=== PATIENT | female | born 1955 | race Caucasian/White ===

== ENCOUNTER 2017-04-24 17:16 | Inpatient (IN) | payer MEDICARE, OTHER ==
[2017-04-24 17:51] LABS: ADD UMIC YES; UR ASCORBIC ACID NEGATIVE (NEGATIVE); UR BACTERIA FEW /HPF (NONE SEEN); UR BILIRUBIN (Dip) NEGATIVE (NEGATIVE); UR BLOOD (Dip) 2+ mg/dL (NEGATIVE); UR CLARITY TURBID (CLEAR); UR COLOR YELLOW (YELLOW); UR GLUCOSE (Dip) 2+ mg/dL (NEGATIVE); UR KETONES (Dip) TRACE mg/dL (NEGATIVE); UR LEUKOCYTE ESTERASE (Dip) 2+ Leu/ul (NEGATIVE); UR NITRITE (Dip) NEGATIVE (NEGATIVE); UR NONSQUAMOUS EPITHELIAL CELL 6 /HPF (NONE SEEN); UR RBC 161 /HPF (0-5); UR SQUAMOUS EPITHELIAL CELL FEW /HPF (FEW); UR TOTAL PROTEIN (Dip) 2+ mg/dl (NEGATIVE); UR UROBILINOGEN (Dip) NEGATIVE (NEGATIVE); UR WBC > 182 /HPF (0-5)
[2017-04-24] MEDS ORDERED: GLUCAGON 1 MG INJ IM (18:30)
[2017-04-24] MEDS ORDERED: LIDOCAINE 1% (MDV) 20 ML INJ INJ (18:30)
[2017-04-24] MEDS ORDERED: GLUCOSE GEL 15 GRAM TUBE BUCCAL (18:30)
[2017-04-24] MEDS ORDERED: DEXTROSE 50% 50 ML SYRINGE IV ×2 (18:30)
[2017-04-24] MEDS ORDERED: GLUCOSE GEL 15 GRAM TUBE PO ×2 (18:30)
[2017-04-24] MEDS ORDERED: DIPHENOXYLATE/ATROPINE TAB PO (19:00)
[2017-04-24] MEDS: NYSTATIN 30 GM POWDER BTL TOP (20:33)
[2017-04-24] MEDS: BALSAM PERU/CASTOR OIL 60 GM TUBE TOP (20:33)
[2017-04-24] MEDS: INSULIN DETEMIR SC (20:36)
[2017-04-24] MEDS: HYDROCODONE/APAP (5/325) TAB PO (21:00)
[2017-04-24] MEDS: ZOLPIDEM 5 MG TAB PO (21:00)
[2017-04-25] MEDS: ACCUCHECK AT 2AM (Patients on SS coverage) XX (02:00)
[2017-04-25] MEDS: ACCUCHECK 2 AM XX (02:00)
[2017-04-25] MEDS: HYDROCODONE/APAP (5/325) TAB PO ×4 (03:06→21:08)
[2017-04-25] MEDS ORDERED: LEVOTHYROXINE 100 MCG TAB PO (06:00)
[2017-04-25 06:30] LABS: ADD MAN DIFF? NO
[2017-04-25 06:34] LABS: EOSINOPHILS # 0.1 10^3/ul (0.0-0.5); EOSINOPHILS % 3.1 % (0.0-7.0); HEMOGLOBIN 11.5 g/dl (12.0-16.0); LYMPHOCYTES % 32.7 % (15.0-51.0); MEAN CORPUSCULAR HEMOGLOBIN 29.6 pg (29.0-33.0); MEAN CORPUSCULAR HGB CONC 33.8 g/dl (32.0-37.0); MEAN CORPUSCULAR VOLUME 87.6 fl (82.0-101.0); MEAN PLATELET VOLUME 10.1 fl (7.4-10.4); MONOCYTE # 0.3 10^3/ul (0.3-0.9); MONOCYTES % 10.9 % (0.0-11.0); NEUTROPHIL # 1.5 10^3/ul (1.6-7.5); PLATELET COUNT 121 10^3/UL (140-415); RED BLOOD COUNT 3.88 10^6/ul (4.20-5.40); RED CELL DISTRIBUTION WIDTH 15.4 % (11.5-14.5)
[2017-04-25 06:34] LABS: WHITE BLOOD COUNT 2.9 10^3/ul (4.8-10.8)
[2017-04-25] MEDS: PANTOPRAZOLE (EC) 40 MG TAB PO (06:47)
[2017-04-25] MEDS: LEVOTHYROXINE 100 MCG TAB PO (06:50)
[2017-04-25 07:19] LABS: ALANINE AMINOTRANSFERASE 35 IU/L (13-69); ALBUMIN 2.6 g/dl (3.3-4.9); ALBUMIN/GLOBULIN RATIO 0.96; ALKALINE PHOSPHATASE 106 IU/L (42-121); ANION GAP 18 (8-16); ASPARTATE AMINO TRANSFERASE 27 IU/L (15-46); BLOOD UREA NITROGEN 27 mg/dl (7-20); CALCIUM 8.7 mg/dl (8.4-10.2); CARBON DIOXIDE 26 mmol/L (21-31); CHLORIDE 89 mmol/L (97-110); CREATININE 6.57 mg/dl (0.44-1.00); GLUCOSE 321 mg/dl (70-220); POTASSIUM 4.6 mmol/L (3.5-5.1); SODIUM 128 mmol/L (135-144); TOTAL PROTEIN 5.3 g/dl (6.1-8.1)
[2017-04-25] MEDS: BALSAM PERU/CASTOR OIL 60 GM TUBE TOP ×2 (08:55→21:10)
[2017-04-25] MEDS: MULTIVIT/CA CARB/B CMPLX/FA TAB PO (08:56)
[2017-04-25] MEDS: CALCIUM ACETATE 667 MG CAP PO ×3 (08:56→18:07)
[2017-04-25] MEDS: FOLIC ACID 1 MG TAB PO (08:56)
[2017-04-25] MEDS: CREON (24K-76K-120K) 1 CAP PO ×3 (08:56→18:07)
[2017-04-25] MEDS: ISOSORBIDE MONONITRATE(SR)60 MG TAB PO (08:56)
[2017-04-25] MEDS: CLOPIDOGREL 75 MG TAB PO (08:56)
[2017-04-25] MEDS: CHOLECALCIFEROL 1,000 UNIT TAB PO (08:57)
[2017-04-25] MEDS: MULTIVITAMINS THERAPEUTIC TAB PO (09:00)
[2017-04-25] MEDS: Insulin NOVOLOG SS MODERATE Algorithm (SS with meals and bedtime) SC ×2 (09:04→12:50)
[2017-04-25] MEDS: DIPHENOXYLATE/ATROPINE TAB PO ×2 (11:53→20:32)
[2017-04-25] MEDS: NYSTATIN 30 GM POWDER BTL TOP ×2 (13:20→21:00)
[2017-04-25] MEDS: ALBUTEROL/IPRATROPIUM (NEB) 3 ML AMP HHN (17:54)
[2017-04-25] MEDS: INSULIN ASPART [NOVOLOG] 3 ML PEN SC ×5 (18:10→21:00)
[2017-04-25] MEDS: ACETAMINOPHEN 325 MG TAB PO (20:23)
[2017-04-25] MEDS: ROSUVASTATIN 10 MG TAB PO (20:23)
[2017-04-25] MEDS: ZOLPIDEM 5 MG TAB PO (20:29)
[2017-04-25] MEDS: INSULIN DETEMIR [LEVEMIR] 3ML CART SC (20:41)
[2017-04-26] MEDS: ACCU-CHEK XX (01:27)
[2017-04-26] MEDS: ACCUCHECK AT 2AM (Patients on SS coverage) XX (02:16)
[2017-04-26] MEDS: HYDROCODONE/APAP (5/325) TAB PO ×4 (03:20→21:54)
[2017-04-26] MEDS: ALBUTEROL/IPRATROPIUM (NEB) 3 ML AMP HHN ×2 (03:40→15:12)
[2017-04-26] MEDS: PANTOPRAZOLE (EC) 40 MG TAB PO (06:34)
[2017-04-26] MEDS: LEVOTHYROXINE 100 MCG TAB PO (06:37)
[2017-04-26] MEDS: BALSAM PERU/CASTOR OIL 60 GM TUBE TOP ×2 (07:49→20:15)
[2017-04-26] MEDS: ISOSORBIDE MONONITRATE(SR)60 MG TAB PO (07:49)
[2017-04-26] MEDS: MULTIVIT/CA CARB/B CMPLX/FA TAB PO (07:50)
[2017-04-26] MEDS: FOLIC ACID 1 MG TAB PO (07:50)
[2017-04-26] MEDS: MULTIVITAMINS THERAPEUTIC TAB PO (07:50)
[2017-04-26] MEDS: CLOPIDOGREL 75 MG TAB PO (07:50)
[2017-04-26] MEDS: CHOLECALCIFEROL 1,000 UNIT TAB PO (07:50)
[2017-04-26] MEDS: CALCIUM ACETATE 667 MG CAP PO ×3 (07:51→17:15)
[2017-04-26] MEDS: CREON (24K-76K-120K) 1 CAP PO ×3 (07:51→17:15)
[2017-04-26] MEDS: INSULIN ASPART [NOVOLOG] 3 ML PEN SC ×7 (08:00→20:21)
[2017-04-26] MEDS: NYSTATIN 30 GM POWDER BTL TOP ×2 (09:00→20:15)
[2017-04-26] MEDS: FLUCONAZOLE 150 MG TAB NGT (17:15)
[2017-04-26] MEDS: L ACIDOPHIL/B LACTIS/B LONGUM CAPSULE PO (20:09)
[2017-04-26] MEDS: INSULIN DETEMIR [LEVEMIR] 3ML CART SC (20:20)
[2017-04-26] MEDS: ROSUVASTATIN CALCIUM 40 MG TABLET PO (21:28)
[2017-04-26] MEDS: AMOXICILLIN 500 MG CAP PO (21:28)
[2017-04-26] MEDS: ZOLPIDEM 5 MG TAB PO (21:28)
[2017-04-27] MEDS: ACCU-CHEK XX (02:00)
[2017-04-27] MEDS: HYDROCODONE/APAP (5/325) TAB PO ×3 (03:53→20:28)
[2017-04-27] MEDS: LEVOTHYROXINE 100 MCG TAB PO (06:31)
[2017-04-27] MEDS: PANTOPRAZOLE (EC) 40 MG TAB PO (06:31)
[2017-04-27] MEDS: AMOXICILLIN 500 MG CAP PO ×3 (06:31→20:24)
[2017-04-27] MEDS: INSULIN ASPART [NOVOLOG] 3 ML PEN SC ×7 (07:35→20:26)
[2017-04-27] MEDS: FOLIC ACID 1 MG TAB PO (08:24)
[2017-04-27] MEDS: CREON (24K-76K-120K) 1 CAP PO ×3 (08:24→18:00)
[2017-04-27] MEDS: CALCIUM ACETATE 667 MG CAP PO ×3 (08:24→18:00)
[2017-04-27] MEDS: L ACIDOPHIL/B LACTIS/B LONGUM CAPSULE PO ×2 (08:24→20:30)
[2017-04-27] MEDS: CLOPIDOGREL 75 MG TAB PO (08:24)
[2017-04-27] MEDS: CHOLECALCIFEROL 1,000 UNIT TAB PO (08:25)
[2017-04-27] MEDS: MULTIVIT/CA CARB/B CMPLX/FA TAB PO (08:28)
[2017-04-27] MEDS: MULTIVITAMINS THERAPEUTIC TAB PO (08:28)
[2017-04-27] MEDS: ISOSORBIDE MONONITRATE(SR)60 MG TAB PO (08:54)
[2017-04-27] MEDS: NYSTATIN 30 GM POWDER BTL TOP ×2 (09:00→20:27)
[2017-04-27] MEDS: BALSAM PERU/CASTOR OIL 60 GM TUBE TOP ×2 (09:00→20:27)
[2017-04-27] MEDS: ALBUTEROL/IPRATROPIUM (NEB) 3 ML AMP HHN (16:21)
[2017-04-27] MEDS: ROSUVASTATIN CALCIUM 40 MG TABLET PO (20:25)
[2017-04-27] MEDS: ZOLPIDEM 5 MG TAB PO (20:28)
[2017-04-27] MEDS: INSULIN DETEMIR [LEVEMIR] 3ML CART SC (20:40)
[2017-04-28] MEDS: ACCU-CHEK XX (02:00)
[2017-04-28] MEDS: AMOXICILLIN 500 MG CAP PO ×3 (06:27→21:00)
[2017-04-28] MEDS: PANTOPRAZOLE (EC) 40 MG TAB PO (06:28)
[2017-04-28] MEDS: LEVOTHYROXINE 100 MCG TAB PO (06:28)
[2017-04-28] MEDS: INSULIN ASPART [NOVOLOG] 3 ML PEN SC ×7 (07:35→20:57)
[2017-04-28] MEDS: MULTIVITAMINS THERAPEUTIC TAB PO (08:31)
[2017-04-28] MEDS: CHOLECALCIFEROL 1,000 UNIT TAB PO (08:37)
[2017-04-28] MEDS: CALCIUM ACETATE 667 MG CAP PO ×3 (08:38→17:35)
[2017-04-28] MEDS: CREON (24K-76K-120K) 1 CAP PO ×3 (08:38→17:36)
[2017-04-28] MEDS: MULTIVIT/CA CARB/B CMPLX/FA TAB PO (08:38)
[2017-04-28] MEDS: ISOSORBIDE MONONITRATE(SR)60 MG TAB PO (08:38)
[2017-04-28] MEDS: CLOPIDOGREL 75 MG TAB PO (08:38)
[2017-04-28] MEDS: FOLIC ACID 1 MG TAB PO (08:38)
[2017-04-28] MEDS: L ACIDOPHIL/B LACTIS/B LONGUM CAPSULE PO ×2 (08:39→20:56)
[2017-04-28] MEDS: NYSTATIN 30 GM POWDER BTL TOP ×3 (08:40→21:00)
[2017-04-28] MEDS: BALSAM PERU/CASTOR OIL 60 GM TUBE TOP ×3 (08:40→21:00)
[2017-04-28] MEDS: ALBUTEROL/IPRATROPIUM (NEB) 3 ML AMP HHN (19:04)
[2017-04-28] MEDS: ZOLPIDEM 5 MG TAB PO (20:58)
[2017-04-28] MEDS: HYDROCODONE/APAP (5/325) TAB PO (20:58)
[2017-04-28] MEDS: INSULIN DETEMIR [LEVEMIR] 3ML CART SC (21:00)
[2017-04-28] MEDS: ROSUVASTATIN CALCIUM 40 MG TABLET PO (21:01)
[2017-04-29] MEDS: ACCU-CHEK XX (01:37)
[2017-04-29] MEDS: PANTOPRAZOLE (EC) 40 MG TAB PO (06:45)
[2017-04-29] MEDS: AMOXICILLIN 500 MG CAP PO (06:45)
[2017-04-29] MEDS: LEVOTHYROXINE 100 MCG TAB PO (06:45)
[2017-04-29] MEDS: INSULIN ASPART [NOVOLOG] 3 ML PEN SC ×7 (08:26→21:00)
[2017-04-29] MEDS: CALCIUM ACETATE 667 MG CAP PO ×3 (08:30→17:51)
[2017-04-29] MEDS: ISOSORBIDE MONONITRATE(SR)60 MG TAB PO (08:30)
[2017-04-29] MEDS: CREON (24K-76K-120K) 1 CAP PO ×3 (08:30→17:51)
[2017-04-29] MEDS: L ACIDOPHIL/B LACTIS/B LONGUM CAPSULE PO ×2 (08:30→21:15)
[2017-04-29] MEDS: FOLIC ACID 1 MG TAB PO (08:31)
[2017-04-29] MEDS: CLOPIDOGREL 75 MG TAB PO (08:31)
[2017-04-29] MEDS: MULTIVIT/CA CARB/B CMPLX/FA TAB PO (08:31)
[2017-04-29] MEDS: CHOLECALCIFEROL 1,000 UNIT TAB PO (08:31)
[2017-04-29] MEDS: BALSAM PERU/CASTOR OIL 60 GM TUBE TOP ×2 (08:32→21:00)
[2017-04-29] MEDS: NYSTATIN 30 GM POWDER BTL TOP ×2 (08:32→21:00)
[2017-04-29] MEDS: HYDROCODONE/APAP (5/325) TAB PO ×3 (08:40→21:17)
[2017-04-29] MEDS: MULTIVITAMINS THERAPEUTIC TAB PO (08:40)
[2017-04-29] MEDS: AMPICILLIN 500 MG CAP PO (09:00)
[2017-04-29] MEDS: FLUCONAZOLE 100 MG TAB PO ×2 (09:59→21:16)
[2017-04-29] MEDS ORDERED: FLUCONAZOLE 100 MG TAB (21:00)
[2017-04-29] MEDS: ROSUVASTATIN CALCIUM 40 MG TABLET PO ×2 (21:00→21:17)
[2017-04-29] MEDS: ZOLPIDEM 5 MG TAB PO (21:16)
[2017-04-29] MEDS: INSULIN DETEMIR [LEVEMIR] 3ML CART SC (21:36)
[2017-04-30] MEDS: ACCU-CHEK XX (02:00)
[2017-04-30] MEDS: HYDROCODONE/APAP (5/325) TAB PO ×3 (03:13→21:47)
[2017-04-30] MEDS: ACETAMINOPHEN 325 MG TAB PO (03:23)
[2017-04-30 06:29] LABS: ADD MAN DIFF? NO
[2017-04-30 06:33] LABS: WHITE BLOOD COUNT 3.7 10^3/ul (4.8-10.8)
[2017-04-30 06:33] LABS: BASOPHIL # 0.1 10^3/ul (0.0-0.1); BASOPHILS % 1.6 % (0.0-2.0); EOSINOPHILS # 0.1 10^3/ul (0.0-0.5); EOSINOPHILS % 3.8 % (0.0-7.0); HEMOGLOBIN 11.2 g/dl (12.0-16.0); LYMPHOCYTES % 26.8 % (15.0-51.0); MEAN CORPUSCULAR HEMOGLOBIN 29.9 pg (29.0-33.0); MEAN CORPUSCULAR HGB CONC 32.9 g/dl (32.0-37.0); MEAN CORPUSCULAR VOLUME 90.9 fl (82.0-101.0); MEAN PLATELET VOLUME 10.3 fl (7.4-10.4); MONOCYTE # 0.6 10^3/ul (0.3-0.9); MONOCYTES % 15.1 % (0.0-11.0); NEUTROPHIL # 1.9 10^3/ul (1.6-7.5); NEUTROPHILS % 52.4 % (39.0-77.0); PLATELET COUNT 116 10^3/UL (140-415); RED BLOOD COUNT 3.74 10^6/ul (4.20-5.40); RED CELL DISTRIBUTION WIDTH 16.1 % (11.5-14.5)
[2017-04-30 07:03] LABS: ANION GAP 13 (8-16); BLOOD UREA NITROGEN 23 mg/dl (7-20); CALCIUM 8.9 mg/dl (8.4-10.2); CARBON DIOXIDE 31 mmol/L (21-31); CHLORIDE 95 mmol/L (97-110); CREATININE 5.16 mg/dl (0.44-1.00); GLUCOSE 152 mg/dl (70-220); PHOSPHORUS 3.9 mg/dl (2.5-4.9); POTASSIUM 3.7 mmol/L (3.5-5.1); SODIUM 135 mmol/L (135-144)
[2017-04-30] MEDS: INSULIN ASPART [NOVOLOG] 3 ML PEN SC ×7 (07:35→21:00)
[2017-04-30] MEDS: MULTIVIT/CA CARB/B CMPLX/FA TAB PO (08:19)
[2017-04-30] MEDS: LEVOTHYROXINE 100 MCG TAB PO (08:19)
[2017-04-30] MEDS: PANTOPRAZOLE (EC) 40 MG TAB PO (08:19)
[2017-04-30] MEDS: MULTIVITAMINS THERAPEUTIC TAB PO (08:19)
[2017-04-30] MEDS: CREON (24K-76K-120K) 1 CAP PO ×3 (08:20→17:35)
[2017-04-30] MEDS: CALCIUM ACETATE 667 MG CAP PO ×3 (08:20→17:36)
[2017-04-30] MEDS: AMPICILLIN 500 MG CAP PO (08:21)
[2017-04-30] MEDS: L ACIDOPHIL/B LACTIS/B LONGUM CAPSULE PO ×2 (08:21→21:53)
[2017-04-30] MEDS: ISOSORBIDE MONONITRATE(SR)60 MG TAB PO (08:21)
[2017-04-30] MEDS: CLOPIDOGREL 75 MG TAB PO (08:21)
[2017-04-30] MEDS: CHOLECALCIFEROL 1,000 UNIT TAB PO (08:22)
[2017-04-30] MEDS: FOLIC ACID 1 MG TAB PO (08:22)
[2017-04-30] MEDS: BALSAM PERU/CASTOR OIL 60 GM TUBE TOP ×2 (08:22→21:59)
[2017-04-30] MEDS: NYSTATIN 30 GM POWDER BTL TOP ×2 (08:22→21:59)
[2017-04-30] MEDS: FLUCONAZOLE 100 MG TAB PO (09:50)
[2017-04-30] MEDS: ZOLPIDEM 5 MG TAB PO (21:46)
[2017-04-30] MEDS: ROSUVASTATIN CALCIUM 40 MG TABLET PO (21:46)
[2017-04-30] MEDS: INSULIN DETEMIR [LEVEMIR] 3ML CART SC (21:58)
[2017-05-01] MEDS: ACCU-CHEK XX (02:00)
[2017-05-01] MEDS: PANTOPRAZOLE (EC) 40 MG TAB PO (06:10)
[2017-05-01] MEDS: LEVOTHYROXINE 100 MCG TAB PO (06:10)
[2017-05-01] MEDS: INSULIN ASPART [NOVOLOG] 3 ML PEN SC ×2 (07:35)
[2017-05-01] MEDS: HYDROCODONE/APAP (5/325) TAB PO (08:18)
[2017-05-01] MEDS: CALCIUM ACETATE 667 MG CAP PO (08:18)
[2017-05-01] MEDS: AMPICILLIN 500 MG CAP PO (08:18)
[2017-05-01] MEDS: CREON (24K-76K-120K) 1 CAP PO (08:19)
[2017-05-01] MEDS: MULTIVIT/CA CARB/B CMPLX/FA TAB PO (08:19)
[2017-05-01] MEDS: FOLIC ACID 1 MG TAB PO (08:19)
[2017-05-01] MEDS: CHOLECALCIFEROL 1,000 UNIT TAB PO (08:19)
[2017-05-01] MEDS: CLOPIDOGREL 75 MG TAB PO (08:19)
[2017-05-01] MEDS: ISOSORBIDE MONONITRATE(SR)60 MG TAB PO (08:20)
[2017-05-01] MEDS: MULTIVITAMINS THERAPEUTIC TAB PO (08:45)
[2017-05-01] MEDS: L ACIDOPHIL/B LACTIS/B LONGUM CAPSULE PO (08:45)
[2017-05-01] MEDS: BALSAM PERU/CASTOR OIL 60 GM TUBE TOP (09:00)
[2017-05-01] MEDS: NYSTATIN 30 GM POWDER BTL TOP (09:00)
[2017-05-01] MEDS ORDERED: FLUCONAZOLE 100 MG TAB PO (10:00)
== END 2017-05-01 11:00 | disposition home health service (06) | DRG 945 ==
LOC: VRC 17:16
PROC: F07Z5ZZ Bed Mobility Treatment (ICD-10-PCS; principal; 2017-04-25)
PROC: F07Z8ZZ Transfer Training Treatment (ICD-10-PCS; 2017-04-25)
PROC: F07Z9YZ Gait Training/Functional Ambulation Treatment using Other Equipment (ICD-10-PCS; 2017-04-25)
PROC: F08Z2ZZ Grooming/Personal Hygiene Treatment (ICD-10-PCS; 2017-04-25)
PROC: F08Z1ZZ Dressing Techniques Treatment (ICD-10-PCS; 2017-04-25)
PROC: F08Z0ZZ Bathing/Showering Techniques Treatment (ICD-10-PCS; 2017-04-25)
PROC: 5A1D70Z Performance of Urinary Filtration, Intermittent, Less than 6 Hours Per Day (ICD-10-PCS; 2017-04-25)
PROC: 5A1D70Z Performance of Urinary Filtration, Intermittent, Less than 6 Hours Per Day (ICD-10-PCS; 2017-04-27)
PROC: 5A1D70Z Performance of Urinary Filtration, Intermittent, Less than 6 Hours Per Day (ICD-10-PCS; 2017-04-29)
PROC: 5A1D70Z Performance of Urinary Filtration, Intermittent, Less than 6 Hours Per Day (ICD-10-PCS; 2017-05-01)
DX: R53.1 Weakness (principal); N18.6 End stage renal disease; L89.150 Pressure ulcer of sacral region, unstageable; I12.0 Hypertensive chronic kidney disease with stage 5 chronic kidney disease or end stage renal disease; E10.22 Type 1 diabetes mellitus with diabetic chronic kidney disease; B37.41 Candidal cystitis and urethritis; D63.1 Anemia in chronic kidney disease; Z94.0 Kidney transplant status; J20.9 Acute bronchitis, unspecified; E10.65 Type 1 diabetes mellitus with hyperglycemia; E10.69 Type 1 diabetes mellitus with other specified complication; F06.31 Mood disorder due to known physiological condition with depressive features; H91.8X9 Other specified hearing loss, unspecified ear; I48.91 Unspecified atrial fibrillation; K52.9 Noninfective gastroenteritis and colitis, unspecified; B95.2 Enterococcus as the cause of diseases classified elsewhere; Z16.21 Resistance to vancomycin; I25.10 Atherosclerotic heart disease of native coronary artery without angina pectoris; Z74.09 Other reduced mobility; Z99.2 Dependence on renal dialysis; Z79.4 Long term (current) use of insulin
CPT/HCPCS: 80048; 80053; 81001; 82962; 84100; 85025; 87081; 87086; 90935; 94640; 94664; 97110; 97112; 97116; 97163; 97167; 97530; 97535

== ENCOUNTER 2017-09-21 10:00 | Inpatient (IN) | payer MEDICARE, OTHER ==
[2017-09-21 12:05] LABS: ADD MAN DIFF? NO
[2017-09-21 12:19] LABS: BASOPHIL # 0.1 10^3/ul (0.0-0.1); EOSINOPHILS # 0.1 10^3/ul (0.0-0.5); EOSINOPHILS % 0.9 % (0.0-7.0); HEMATOCRIT 35.8 % (37.0-47.0); HEMOGLOBIN 11.4 g/dl (12.0-16.0); LYMPHOCYTES # 0.6 10^3/ul (0.8-2.9); LYMPHOCYTES % 11.2 % (15.0-51.0); MEAN CORPUSCULAR HEMOGLOBIN 28.9 pg (29.0-33.0); MEAN CORPUSCULAR HGB CONC 31.8 g/dl (32.0-37.0); MEAN CORPUSCULAR VOLUME 90.9 fl (82.0-101.0); MONOCYTE # 0.3 10^3/ul (0.3-0.9); MONOCYTES % 5.9 % (0.0-11.0); NEUTROPHIL # 4.6 10^3/ul (1.6-7.5); NEUTROPHILS % 80.7 % (39.0-77.0); PLATELET COUNT 185 10^3/UL (140-415); RED BLOOD COUNT 3.94 10^6/ul (4.20-5.40); RED CELL DISTRIBUTION WIDTH 15.7 % (11.5-14.5)
[2017-09-21 12:19] LABS: WHITE BLOOD COUNT 5.7 10^3/ul (4.8-10.8)
[2017-09-21 12:33] LABS: ALANINE AMINOTRANSFERASE 24 IU/L (13-69); ALBUMIN 3.8 g/dl (3.3-4.9); ALBUMIN/GLOBULIN RATIO 1.22; ALKALINE PHOSPHATASE 162 IU/L (42-121); ANION GAP 28 (8-16); ASPARTATE AMINO TRANSFERASE 31 IU/L (15-46); BILIRUBIN,INDIRECT 0.1 mg/dl (0-1.1); BILIRUBIN,TOTAL 0.1 mg/dl (0.2-1.3); BLOOD UREA NITROGEN 45 mg/dl (7-20); CALCIUM 9.4 mg/dl (8.4-10.2); CARBON DIOXIDE 21 mmol/L (21-31); CHLORIDE 82 mmol/L (97-110); CREATININE 7.06 mg/dl (0.44-1.00); LIPASE 26 U/L (23-300); POTASSIUM 4.6 mmol/L (3.5-5.1); SODIUM 126 mmol/L (135-144); TOTAL PROTEIN 6.9 g/dl (6.1-8.1)
[2017-09-21 12:36] LABS: GLUCOSE 537 mg/dl (70-220)
[2017-09-21] MEDS: INSULIN REGULAR, HUMAN 100 UNIT/1 ML 3ML VIAL SC (13:05)
[2017-09-21] MEDS: SOD CHLORIDE 0.9% 250 ML IV (13:11)
[2017-09-21] MEDS ORDERED: ONDANSETRON 4 MG INJ IV ×2 (13:30→14:00)
[2017-09-21] MEDS ORDERED: ACETAMINOPHEN 325 MG TAB PO ×2 (13:30→14:00)
[2017-09-21] MEDS ORDERED: BISACODYL 10 MG SUPP PR (14:00)
[2017-09-21] MEDS ORDERED: DIPHENOXYLATE/ATROPINE TAB PO (14:00)
[2017-09-21] MEDS ORDERED: NACL 0.9% 3 ML SYG IV (14:00)
[2017-09-21] MEDS ORDERED: DOCUSATE SODIUM 100 MG CAP PO (14:00)
[2017-09-21] MEDS ORDERED: GLUCOSE GEL 15 GRAM TUBE BUCCAL (14:30)
[2017-09-21] MEDS ORDERED: DEXTROSE 50% 50 ML SYRINGE IV ×2 (14:30)
[2017-09-21] MEDS ORDERED: GLUCAGON 1 MG INJ IM (14:30)
[2017-09-21] MEDS ORDERED: GLUCOSE GEL 15 GRAM TUBE PO ×2 (14:30)
[2017-09-21 15:32] LABS: OSMOLALITY 302 mOsm/kg (280-295)
[2017-09-21 16:32] LABS: ANION GAP 23 (8-16); BLOOD UREA NITROGEN 49 mg/dl (7-20); CALCIUM 9.1 mg/dl (8.4-10.2); CARBON DIOXIDE 22 mmol/L (21-31); CHLORIDE 84 mmol/L (97-110); CREATININE 7.34 mg/dl (0.44-1.00); POTASSIUM 3.9 mmol/L (3.5-5.1); SODIUM 125 mmol/L (135-144)
[2017-09-21 16:49] LABS: GLUCOSE 445 mg/dl (70-220)
[2017-09-21] MEDS: CALCIUM ACETATE 667 MG CAP PO (17:29)
[2017-09-21] MEDS: SEVELAMER 800 MG TAB PO (17:29)
[2017-09-21] MEDS: INSULIN ASPART [NOVOLOG] 3 ML PEN SC ×3 (17:32→21:40)
[2017-09-21] MEDS ORDERED: INSULIN GLARGINE [LANtus] 3 ML PEN SC (21:00)
[2017-09-21] MEDS ORDERED: NON-FORMULARY/PATIENT OWN MED (Simvastatin* (Zocor*) 20 MG) PO (21:00)
[2017-09-21] MEDS: FISH OIL 1,000 MG CAP PO (21:23)
[2017-09-21] MEDS: INSULIN GLARGINE [LANtus] 3 ML PEN SC (21:42)
[2017-09-21] MEDS: HEPARIN 5,000 UNIT/0.5 ML VIAL SC (21:43)
[2017-09-21] MEDS: ZOLPIDEM 5 MG TAB PO (21:45)
[2017-09-21] MEDS: HYDROCODONE/APAP (5/325) TAB PO (21:59)
[2017-09-22] MEDS: INSULIN ASPART [NOVOLOG] 3 ML PEN SC ×6 (01:00→22:18)
[2017-09-22] MEDS: LEVOTHYROXINE 100 MCG TAB PO (06:47)
[2017-09-22] MEDS: CALCIUM ACETATE 667 MG CAP PO ×3 (08:12→17:04)
[2017-09-22] MEDS: FISH OIL 1,000 MG CAP PO ×2 (08:12→22:12)
[2017-09-22] MEDS: MULTIVIT/CA CARB/B CMPLX/FA TAB PO (08:12)
[2017-09-22] MEDS: PANTOPRAZOLE (EC) 40 MG TAB PO (08:12)
[2017-09-22] MEDS: SEVELAMER 800 MG TAB PO ×3 (08:12→17:04)
[2017-09-22] MEDS: FERROUS SULFATE (EC) 325 MG TAB PO (08:12)
[2017-09-22] MEDS: ISOSORBIDE MONONITRATE(SR)60 MG TAB PO (08:18)
[2017-09-22] MEDS: HEPARIN 5,000 UNIT/0.5 ML VIAL SC ×2 (08:42→22:18)
[2017-09-22 09:07] LABS: ADD MAN DIFF? NO
[2017-09-22 09:17] LABS: BASOPHIL # 0.1 10^3/ul (0.0-0.1); BASOPHILS % 1.5 % (0.0-2.0); EOSINOPHILS # 0.3 10^3/ul (0.0-0.5); EOSINOPHILS % 5.7 % (0.0-7.0); HEMATOCRIT 35.7 % (37.0-47.0); HEMOGLOBIN 11.5 g/dl (12.0-16.0); LYMPHOCYTES # 0.9 10^3/ul (0.8-2.9); LYMPHOCYTES % 19.8 % (15.0-51.0); MEAN CORPUSCULAR HEMOGLOBIN 28.4 pg (29.0-33.0); MEAN CORPUSCULAR HGB CONC 32.2 g/dl (32.0-37.0); MEAN CORPUSCULAR VOLUME 88.1 fl (82.0-101.0); MONOCYTE # 0.4 10^3/ul (0.3-0.9); MONOCYTES % 9.7 % (0.0-11.0); NEUTROPHIL # 2.9 10^3/ul (1.6-7.5); NEUTROPHILS % 62.9 % (39.0-77.0); PLATELET COUNT 210 10^3/UL (140-415); RED BLOOD COUNT 4.05 10^6/ul (4.20-5.40); RED CELL DISTRIBUTION WIDTH 15.2 % (11.5-14.5)
[2017-09-22 09:17] LABS: WHITE BLOOD COUNT 4.5 10^3/ul (4.8-10.8)
[2017-09-22 09:42] LABS: ANION GAP 15 (8-16); BLOOD UREA NITROGEN 52 mg/dl (7-20); CALCIUM 9.7 mg/dl (8.4-10.2); CARBON DIOXIDE 31 mmol/L (21-31); CHLORIDE 83 mmol/L (97-110); CREATININE 8.16 mg/dl (0.44-1.00); GLUCOSE 215 mg/dl (70-220); PHOSPHORUS 3.9 mg/dl (2.5-4.9); SODIUM 125 mmol/L (135-144)
[2017-09-22 09:44] LABS: IRON 121 ug/dl (35-150)
[2017-09-22 09:57] LABS: % IRON SATURATION 57 % SAT (22-52); TOTAL IRON BINDING CAPACITY 212 ug/dl (241-421)
[2017-09-22] MEDS: HYDROCODONE/APAP (5/325) TAB PO ×2 (10:04→22:32)
[2017-09-22] MEDS: LIDOCAINE 1% (MDV) 10 ML INJ INJ (14:15)
[2017-09-22 16:47] LABS: HEPATITIS B SURFACE ANTIGEN NEGATIVE (NEGATIVE)
[2017-09-22] MEDS ORDERED: EPOETIN 10000 UNITS/1 ML INJ (ESRD) SC (17:00)
[2017-09-22 17:23] LABS: HEPATITIS B SURFACE ANTIBODY NEGATIVE (NEGATIVE)
[2017-09-22] MEDS: INSULIN GLARGINE [LANtus] 3 ML PEN SC (22:18)
[2017-09-22] MEDS: ZOLPIDEM 5 MG TAB PO (22:33)
[2017-09-23] MEDS: INSULIN ASPART [NOVOLOG] 3 ML PEN SC ×5 (01:00→17:18)
[2017-09-23] MEDS: LEVOTHYROXINE 100 MCG TAB PO (06:11)
[2017-09-23] MEDS: LIDOCAINE 1% (MDV) 10 ML INJ INJ (08:00)
[2017-09-23] MEDS: FISH OIL 1,000 MG CAP PO (08:10)
[2017-09-23] MEDS: SEVELAMER 800 MG TAB PO ×3 (08:10→17:14)
[2017-09-23] MEDS: MULTIVIT/CA CARB/B CMPLX/FA TAB PO (08:10)
[2017-09-23] MEDS: PANTOPRAZOLE (EC) 40 MG TAB PO (08:11)
[2017-09-23] MEDS: FERROUS SULFATE (EC) 325 MG TAB PO (08:11)
[2017-09-23] MEDS: CALCIUM ACETATE 667 MG CAP PO ×3 (08:56→17:14)
[2017-09-23] MEDS: ISOSORBIDE MONONITRATE(SR)60 MG TAB PO (08:56)
[2017-09-23] MEDS: HEPARIN 5,000 UNIT/0.5 ML VIAL SC (08:57)
[2017-09-23] MEDS: HYDROCODONE/APAP (5/325) TAB PO (10:00)
== END 2017-09-23 19:15 | disposition home or self-care (01) | DRG 682 ==
LOC: E/R 10:00 → MS4 13:14
PROC: 5A1D70Z Performance of Urinary Filtration, Intermittent, Less than 6 Hours Per Day (ICD-10-PCS; principal; 2017-09-22)
DX: I12.0 Hypertensive chronic kidney disease with stage 5 chronic kidney disease or end stage renal disease (principal); N18.6 End stage renal disease; Z94.83 Pancreas transplant status; E87.1 Hypo-osmolality and hyponatremia; T86.10 Unspecified complication of kidney transplant; E10.65 Type 1 diabetes mellitus with hyperglycemia; G25.3 Myoclonus; R53.1 Weakness; E10.22 Type 1 diabetes mellitus with diabetic chronic kidney disease; Z87.11 Personal history of peptic ulcer disease; E78.5 Hyperlipidemia, unspecified; E03.9 Hypothyroidism, unspecified; I25.10 Atherosclerotic heart disease of native coronary artery without angina pectoris; K21.9 Gastro-esophageal reflux disease without esophagitis; R26.89 Other abnormalities of gait and mobility; E10.42 Type 1 diabetes mellitus with diabetic polyneuropathy; D63.1 Anemia in chronic kidney disease; I48.91 Unspecified atrial fibrillation; H91.90 Unspecified hearing loss, unspecified ear; Z83.3 Family history of diabetes mellitus; Z99.2 Dependence on renal dialysis; Z91.15 Patient's noncompliance with renal dialysis; Z87.891 Personal history of nicotine dependence; Z91.81 History of falling; Z90.49 Acquired absence of other specified parts of digestive tract; Z96.642 Presence of left artificial hip joint; Z96.89 Presence of other specified functional implants; Z86.73 Personal history of transient ischemic attack (TIA), and cerebral infarction without residual deficits; Z85.828 Personal history of other malignant neoplasm of skin; Y83.0 Surgical operation with transplant of whole organ as the cause of abnormal reaction of the patient, or of later complication, without mention of misadventure at the time of the procedure
CPT/HCPCS: 36415; 70450; 71045; 80048; 80053; 82607; 82728; 82962; 83540; 83690; 83930; 84100; 84443; 85025; 86706; 87340; 90935; 93005; 96372; 97164; 99285-25

== ENCOUNTER 2018-03-01 18:14 | Emergency (ER) | payer MEDICARE, OTHER ==
[2018-03-01] MEDS: SOD CHLORIDE 0.9% 600 ML IV (19:42)
[2018-03-01 19:44] LABS: ADD MAN DIFF? NO; BASOPHIL # 0.1 10^3/ul (0.0-0.1); BASOPHILS % 1.5 % (0.0-2.0); EOSINOPHILS # 0.2 10^3/ul (0.0-0.5); EOSINOPHILS % 3.4 % (0.0-7.0); HEMATOCRIT 39.1 % (37.0-47.0); HEMOGLOBIN 12.3 g/dl (12.0-16.0); LYMPHOCYTES % 22.4 % (15.0-51.0); MEAN CORPUSCULAR HEMOGLOBIN 28.4 pg (29.0-33.0); MEAN CORPUSCULAR HGB CONC 31.5 g/dl (32.0-37.0); MEAN CORPUSCULAR VOLUME 90.3 fl (82.0-101.0); MONOCYTE # 0.4 10^3/ul (0.3-0.9); MONOCYTES % 8.6 % (0.0-11.0); NEUTROPHILS % 63.9 % (39.0-77.0); PLATELET COUNT 143 10^3/UL (140-415); RED BLOOD COUNT 4.33 10^6/ul (4.20-5.40); RED CELL DISTRIBUTION WIDTH 14.8 % (11.5-14.5)
[2018-03-01 19:44] LABS: WHITE BLOOD COUNT 4.6 10^3/ul (4.8-10.8)
[2018-03-01 20:04] LABS: ANION GAP 18 (5-13); BLOOD UREA NITROGEN 28 mg/dl (7-20); CALCIUM 10.6 mg/dl (8.4-10.2); CARBON DIOXIDE 29 mmol/L (21-31); CHLORIDE 82 mmol/L (97-110); CREATININE 4.98 mg/dl (0.44-1.00); Estimated GFR 9 mL/min (>60); MAGNESIUM 2.1 mg/dl (1.7-2.5); PHOSPHORUS 3.5 mg/dl (2.5-4.9); POTASSIUM 4.9 mmol/L (3.5-5.1); SODIUM 129 mmol/L (135-144)
[2018-03-01 20:06] LABS: GLUCOSE 508 mg/dl (70-220)
[2018-03-01] MEDS ORDERED: INSULIN LISPRO 100 UNIT/ML VIAL SC (20:30)
[2018-03-01] MEDS: INSULIN LISPRO 100 UNIT/ML VIAL SC (20:57)
== END 2018-03-01 22:16 | disposition home or self-care (01) ==
LOC: E/R 18:14
DX: E87.5 Hyperkalemia (principal); I12.0 Hypertensive chronic kidney disease with stage 5 chronic kidney disease or end stage renal disease; N18.6 End stage renal disease; I25.10 Atherosclerotic heart disease of native coronary artery without angina pectoris; E11.22 Type 2 diabetes mellitus with diabetic chronic kidney disease; Z79.4 Long term (current) use of insulin; Z86.73 Personal history of transient ischemic attack (TIA), and cerebral infarction without residual deficits; Z98.61 Coronary angioplasty status; Z99.2 Dependence on renal dialysis
CPT/HCPCS: 36415; 80048; 82962; 83735; 84100; 85025; 96372; 99284-25

== ENCOUNTER 2018-03-03 16:30 | Inpatient (IN) | payer MEDICARE, OTHER ==
[2018-03-03 18:16] LABS: ADD MAN DIFF? NO
[2018-03-03 18:18] LABS: WHITE BLOOD COUNT 4.3 10^3/ul (4.8-10.8)
[2018-03-03 18:18] LABS: BASOPHIL # 0.1 10^3/ul (0.0-0.1); BASOPHILS % 1.4 % (0.0-2.0); EOSINOPHILS # 0.1 10^3/ul (0.0-0.5); EOSINOPHILS % 2.3 % (0.0-7.0); HEMATOCRIT 38.1 % (37.0-47.0); HEMOGLOBIN 12.2 g/dl (12.0-16.0); LYMPHOCYTES # 1.1 10^3/ul (0.8-2.9); LYMPHOCYTES % 25.6 % (15.0-51.0); MEAN CORPUSCULAR HEMOGLOBIN 28.4 pg (29.0-33.0); MEAN CORPUSCULAR VOLUME 88.6 fl (82.0-101.0); MONOCYTE # 0.5 10^3/ul (0.3-0.9); MONOCYTES % 11.1 % (0.0-11.0); NEUTROPHIL # 2.6 10^3/ul (1.6-7.5); NEUTROPHILS % 59.4 % (39.0-77.0); PLATELET COUNT 135 10^3/UL (140-415)
[2018-03-03 18:36] LABS: ANION GAP 14 (5-13); BLOOD UREA NITROGEN 42 mg/dl (7-20); CALCIUM 10.1 mg/dl (8.4-10.2); CARBON DIOXIDE 28 mmol/L (21-31); CHLORIDE 83 mmol/L (97-110); CREATININE 7.38 mg/dl (0.44-1.00); Estimated GFR 6 mL/min (>60); GLUCOSE 301 mg/dl (70-220); MAGNESIUM 2.2 mg/dl (1.7-2.5); PHOSPHORUS 4.1 mg/dl (2.5-4.9); POTASSIUM 4.6 mmol/L (3.5-5.1); SODIUM 125 mmol/L (135-144)
[2018-03-03 18:45] LABS: INR 1.09; PROTIME 14.3 Sec (11.9-14.9); PT RATIO 1.1
[2018-03-03 18:46] LABS: PARTIAL THROMBOPLASTIN TIME 31.2 Sec (23.0-35.0)
[2018-03-03 18:47] LABS: TROPONIN-I 0.111 ng/ml (0.000-0.120)
[2018-03-03] MEDS ORDERED: NACL 0.9% 3 ML SYG IV (20:30)
[2018-03-03] MEDS ORDERED: ZOLPIDEM 5 MG TAB PO (20:30)
[2018-03-03] MEDS ORDERED: NON-FORMULARY/PATIENT OWN MED (Simvastatin* (Zocor*) 20 MG) XX (21:00)
[2018-03-04] MEDS: INSULIN ASPART [NOVOLOG] 3 ML PEN SC ×5 (00:26→21:21)
[2018-03-04] MEDS: INSULIN GLARGINE [LANTus] (100 UNITS/ML) SYG SC ×2 (00:38→21:20)
[2018-03-04] MEDS: DIPHENOXYLATE/ATROPINE TAB PO (06:16)
[2018-03-04] MEDS: PANTOPRAZOLE (EC) 40 MG TAB PO (06:16)
[2018-03-04] MEDS: LEVOTHYROXINE 100 MCG TAB PO (06:16)
[2018-03-04] MEDS: LOPERAMIDE 2 MG CAP PO (06:17)
[2018-03-04] MEDS: CALCIUM ACETATE 667 MG CAP PO ×3 (08:18→17:24)
[2018-03-04] MEDS: MULTIVIT/CA CARB/B CMPLX/FA TAB PO (08:19)
[2018-03-04] MEDS: ISOSORBIDE MONONITRATE(SR)30 MG TAB PO (08:20)
[2018-03-04] MEDS ORDERED: LIDOCAINE 1% (MDV) 10 ML INJ INFIL (08:30)
[2018-03-04] MEDS: [UNRECOGNIZED DRUG - REMARK] XX ×2 (09:00→17:32)
[2018-03-04] MEDS ORDERED: LIDOCAINE 1% (MPF) 5 ML VIAL INJ (10:00)
[2018-03-04] MEDS ORDERED: LIDOCAINE 1% (MPF) 10 ML INJ INJ (10:00)
[2018-03-04 10:33] LABS: HEPATITIS B SURFACE ANTIGEN NEGATIVE (NEGATIVE)
[2018-03-04 10:49] LABS: HEPATITIS B SURFACE ANTIBODY NEGATIVE (NEGATIVE)
[2018-03-04] MEDS: HYDROCODONE/APAP (5/325) TAB PO (10:58)
[2018-03-04] MEDS ORDERED: INSULIN GLARGINE [LANTus] (100 UNITS/ML) SYG SC (20:00)
[2018-03-04] MEDS: ZOLPIDEM 5 MG TAB PO (22:25)
[2018-03-04] MEDS: ACETAMINOPHEN 325 MG TAB PO (22:25)
[2018-03-05] MEDS: [UNRECOGNIZED DRUG - REMARK] XX (01:00)
[2018-03-05] MEDS: LEVOTHYROXINE 100 MCG TAB PO ×4 (06:41→08:20)
[2018-03-05] MEDS: PANTOPRAZOLE (EC) 40 MG TAB PO ×2 (06:41→08:22)
[2018-03-05] MEDS: CALCIUM ACETATE 667 MG CAP PO ×2 (08:18→17:02)
[2018-03-05] MEDS: MULTIVIT/CA CARB/B CMPLX/FA TAB PO (08:21)
[2018-03-05] MEDS: INSULIN ASPART [NOVOLOG] 3 ML PEN SC ×3 (08:40→17:02)
[2018-03-05] MEDS ORDERED: LIDOCAINE 1% (MPF) 5 ML VIAL INFIL (09:00)
[2018-03-05] MEDS: INSULIN GLARGINE [LANTus] (100 UNITS/ML) SYG SC (09:25)
[2018-03-05 10:34] LABS: ALANINE AMINOTRANSFERASE 52 IU/L (13-69); ALBUMIN 3.4 g/dl (3.3-4.9); ALBUMIN/GLOBULIN RATIO 1.36; ALKALINE PHOSPHATASE 155 IU/L (42-121); ANION GAP 10 (5-13); ASPARTATE AMINO TRANSFERASE 143 IU/L (15-46); BILIRUBIN,INDIRECT 0.2 mg/dl (0-1.1); BILIRUBIN,TOTAL 0.2 mg/dl (0.2-1.3); BLOOD UREA NITROGEN 23 mg/dl (7-20); CALCIUM 9.4 mg/dl (8.4-10.2); CARBON DIOXIDE 28 mmol/L (21-31); CHLORIDE 96 mmol/L (97-110); CREATININE 5.11 mg/dl (0.44-1.00); Estimated GFR 8 mL/min (>60); GLUCOSE 234 mg/dl (70-220); POTASSIUM 3.9 mmol/L (3.5-5.1); SODIUM 134 mmol/L (135-144); TOTAL PROTEIN 5.9 g/dl (6.1-8.1)
[2018-03-05] MEDS: ISOSORBIDE MONONITRATE(SR)30 MG TAB PO (17:01)
== END 2018-03-05 19:01 | disposition home or self-care (01) | DRG 91 ==
LOC: E/R 16:30 → 6WM 19:21
DX: G25.3 Myoclonus (principal); N18.6 End stage renal disease; I12.0 Hypertensive chronic kidney disease with stage 5 chronic kidney disease or end stage renal disease; E87.1 Hypo-osmolality and hyponatremia; E10.22 Type 1 diabetes mellitus with diabetic chronic kidney disease; D63.1 Anemia in chronic kidney disease; R00.1 Bradycardia, unspecified; R27.0 Ataxia, unspecified; I25.10 Atherosclerotic heart disease of native coronary artery without angina pectoris; Z99.2 Dependence on renal dialysis; Z95.5 Presence of coronary angioplasty implant and graft; Z96.21 Cochlear implant status
CPT/HCPCS: 36415; 71045; 80048; 80053; 82962; 83735; 84100; 84484; 85025; 85610; 85730; 86706; 87340; 90935; 93005; 99285-25

== ENCOUNTER 2018-08-06 16:41 | Emergency (ER) | payer MEDICARE, OTHER ==
[2018-08-06 18:01] LABS: ADD MAN DIFF? NO
[2018-08-06 18:02] LABS: BASOPHIL # 0.1 10^3/ul (0.0-0.1); BASOPHILS % 1.5 % (0.0-2.0); EOSINOPHILS # 0.1 10^3/ul (0.0-0.5); EOSINOPHILS % 2.4 % (0.0-7.0); HEMATOCRIT 30.3 % (37.0-47.0); HEMOGLOBIN 9.5 g/dl (12.0-16.0); LYMPHOCYTES # 0.7 10^3/ul (0.8-2.9); LYMPHOCYTES % 20.8 % (15.0-51.0); MEAN CORPUSCULAR HEMOGLOBIN 29.1 pg (29.0-33.0); MEAN CORPUSCULAR HGB CONC 31.4 g/dl (32.0-37.0); MEAN CORPUSCULAR VOLUME 92.9 fl (82.0-101.0); MONOCYTE # 0.3 10^3/ul (0.3-0.9); MONOCYTES % 9.8 % (0.0-11.0); NEUTROPHIL # 2.2 10^3/ul (1.6-7.5); NEUTROPHILS % 65.2 % (39.0-77.0); PLATELET COUNT 165 10^3/UL (140-415); RED BLOOD COUNT 3.26 10^6/ul (4.20-5.40); RED CELL DISTRIBUTION WIDTH 17.7 % (11.5-14.5)
[2018-08-06 18:02] LABS: WHITE BLOOD COUNT 3.4 10^3/ul (4.8-10.8)
[2018-08-06 18:21] LABS: INR 1.14; PARTIAL THROMBOPLASTIN TIME 30.3 Sec (23.0-35.0); PROTIME 14.7 Sec (11.9-14.9); PT RATIO 1.1
== END 2018-08-06 19:15 | disposition home or self-care (01) ==
LOC: E/R 16:41
DX: T82.898A Other specified complication of vascular prosthetic devices, implants and grafts, initial encounter (principal); N18.6 End stage renal disease; I12.0 Hypertensive chronic kidney disease with stage 5 chronic kidney disease or end stage renal disease; I25.10 Atherosclerotic heart disease of native coronary artery without angina pectoris; E11.22 Type 2 diabetes mellitus with diabetic chronic kidney disease; Y82.9 Unspecified medical devices associated with adverse incidents; Z87.891 Personal history of nicotine dependence; Z99.2 Dependence on renal dialysis; Z86.73 Personal history of transient ischemic attack (TIA), and cerebral infarction without residual deficits; Z98.61 Coronary angioplasty status; Z79.4 Long term (current) use of insulin
CPT/HCPCS: 85025; 85610; 85730; 86850; 86900; 86901; 99291-25

== ENCOUNTER 2018-10-04 15:07 | Inpatient (IN) | payer MEDICARE, OTHER ==
[2018-10-04] MEDS: PIPER-TAZO 3.375 GM IV (PMX) 100 ML IVPB (16:31)
[2018-10-04] MEDS: ONDANSETRON 4 MG INJ IV (16:31)
[2018-10-04] MEDS: morphine 4 MG/ML VIAL IV (16:31)
[2018-10-04 16:43] LABS: ADD MAN DIFF? NO
[2018-10-04 16:45] LABS: WHITE BLOOD COUNT 5.8 10^3/ul (4.8-10.8)
[2018-10-04 16:45] LABS: BASOPHIL # 0.1 10^3/ul (0.0-0.1); BASOPHILS % 1.2 % (0.0-2.0); EOSINOPHILS # 0.1 10^3/ul (0.0-0.5); EOSINOPHILS % 1.9 % (0.0-7.0); HEMATOCRIT 36.5 % (37.0-47.0); HEMOGLOBIN 11.6 g/dl (12.0-16.0); LYMPHOCYTES # 0.9 10^3/ul (0.8-2.9); LYMPHOCYTES % 14.6 % (15.0-51.0); MEAN CORPUSCULAR HEMOGLOBIN 27.1 pg (29.0-33.0); MEAN CORPUSCULAR HGB CONC 31.8 g/dl (32.0-37.0); MEAN CORPUSCULAR VOLUME 85.3 fl (82.0-101.0); MEAN PLATELET VOLUME 10.8 fl (7.4-10.4); MONOCYTE # 0.5 10^3/ul (0.3-0.9); MONOCYTES % 8.9 % (0.0-11.0); NEUTROPHIL # 4.3 10^3/ul (1.6-7.5); NEUTROPHILS % 73.2 % (39.0-77.0); PLATELET COUNT 137 10^3/UL (140-415); RED BLOOD COUNT 4.28 10^6/ul (4.20-5.40); RED CELL DISTRIBUTION WIDTH 15.3 % (11.5-14.5)
[2018-10-04 17:03] LABS: ALANINE AMINOTRANSFERASE 16 IU/L (13-69); ALBUMIN 4.1 g/dl (3.3-4.9); ALBUMIN/GLOBULIN RATIO 1.57; ALKALINE PHOSPHATASE 134 IU/L (42-121); ANION GAP 15 (5-13); ASPARTATE AMINO TRANSFERASE 29 IU/L (15-46); BILIRUBIN,INDIRECT 0.2 mg/dl (0-1.1); BILIRUBIN,TOTAL 0.2 mg/dl (0.2-1.3); BLOOD UREA NITROGEN 39 mg/dl (7-20); CALCIUM 9.7 mg/dl (8.4-10.2); CARBON DIOXIDE 27 mmol/L (21-31); CHLORIDE 87 mmol/L (97-110); CREATININE 5.29 mg/dl (0.44-1.00); Estimated GFR 8 mL/min (>60); POTASSIUM 4.6 mmol/L (3.5-5.1); SODIUM 129 mmol/L (135-144); TOTAL PROTEIN 6.7 g/dl (6.1-8.1)
[2018-10-04 17:06] LABS: INR 1.07; PT RATIO 1.1
[2018-10-04 17:07] LABS: PARTIAL THROMBOPLASTIN TIME 31.8 Sec (23.0-35.0)
[2018-10-04 17:14] LABS: TROPONIN-I 0.051 ng/ml (0.000-0.120)
[2018-10-04 17:17] LABS: GLUCOSE 586 mg/dl (70-220)
[2018-10-04] MEDS ORDERED: INSULIN REGULAR 10 ML INJ IV (17:26)
[2018-10-04] MEDS: CLINDAMYCIN 900 MG/D5W (PMX) 50 ML IVPB (17:30)
[2018-10-04 17:32] LABS: MODE ROOM AIR; MetHgb Venous 0.4 %; Sample Type Blood venous; Site VENOUS LINE; Venous COHb 0.5 %; Venous Fraction OxyHgb 49.6 %; Venous Oxygen Sat 50.1 mmHG (55.0-75.0); Venous Total Hemglobin 12.6 g/dl
[2018-10-04 17:45] LABS: PHOSPHORUS 5.4 mg/dl (2.5-4.9)
[2018-10-04 17:45] LABS: MAGNESIUM 2.1 mg/dl (1.7-2.5)
[2018-10-04 17:53] LABS: HEMOGLOBIN A1C 9.8 % (0-5.9)
[2018-10-04] MEDS ORDERED: INSULIN LISPRO 100 UNIT/ML VIAL SC (18:01)
[2018-10-04] MEDS: INSULIN HUMAN REGULAR 100 UNIT in SOD CHLORIDE 0.9% 99 ML IV (18:07)
[2018-10-04] MEDS: INSULIN REGULAR 10 ML INJ IV (18:24)
[2018-10-04] MEDS: SOD CHLORIDE 0.9% 500 ML IV (18:24)
[2018-10-04] MEDS: ACCU-CHEK XX (18:26)
[2018-10-04] MEDS ORDERED: DEXTROSE 50% 50 ML SYRINGE IV ×4 (18:30→19:30)
[2018-10-04] MEDS ORDERED: GLUCAGON 1 MG INJ IM ×2 (18:30→19:30)
[2018-10-04] MEDS ORDERED: GLUCOSE GEL 15 GRAM TUBE PO ×4 (18:30→19:30)
[2018-10-04] MEDS ORDERED: GLUCOSE GEL 15 GRAM TUBE BUCCAL ×2 (18:30→19:30)
[2018-10-04] MEDS: ALBUTEROL 0.5% (NEB) 2.5 MG/0.5 ML AMP NEB (18:50)
[2018-10-04] MEDS: IPRATROPIUM (NEB) 0.5 MG/2.5 ML AMP NEB (18:50)
[2018-10-04] MEDS ORDERED: ACETAMINOPHEN 325 MG TAB PO (19:00)
[2018-10-04] MEDS ORDERED: ONDANSETRON 4 MG INJ IV (19:00)
[2018-10-04] MEDS ORDERED: NON-FORMULARY/PATIENT OWN MED (Simvastatin* (Zocor*) 20 MG) PO (21:00)
[2018-10-04] MEDS: [UNRECOGNIZED DRUG - REMARK] XX (21:30)
[2018-10-04] MEDS: CLOPIDOGREL 75 MG TAB PO (22:13)
[2018-10-04] MEDS: APIXABAN 5 MG TABLET PO (22:14)
[2018-10-04] MEDS: INSULIN GLARGINE [LANTus] (100 UNITS/ML) SYG SC (22:25)
[2018-10-04] MEDS: SOD CHLORIDE 0.9% 1,000 ML IV (22:41)
[2018-10-04] MEDS: ZOLPIDEM 5 MG TAB PO (22:43)
[2018-10-04] MEDS: INSULIN ASPART [NOVOLOG] 3 ML PEN SC (22:54)
[2018-10-05] MEDS: ACCU-CHEK XX (03:48)
[2018-10-05] MEDS: INSULIN ASPART [NOVOLOG] 3 ML PEN SC ×9 (03:48→21:00)
[2018-10-05] MEDS: [UNRECOGNIZED DRUG - REMARK] XX ×3 (05:30→21:30)
[2018-10-05 06:17] LABS: ADD MAN DIFF? NO
[2018-10-05] MEDS: LEVOTHYROXINE 100 MCG TAB PO (06:20)
[2018-10-05] MEDS: PANTOPRAZOLE (EC) 40 MG TAB PO (06:21)
[2018-10-05 06:22] LABS: WHITE BLOOD COUNT 4.1 10^3/ul (4.8-10.8)
[2018-10-05 06:22] LABS: BASOPHIL # 0.1 10^3/ul (0.0-0.1); BASOPHILS % 1.9 % (0.0-2.0); EOSINOPHILS # 0.2 10^3/ul (0.0-0.5); EOSINOPHILS % 4.1 % (0.0-7.0); HEMATOCRIT 38.3 % (37.0-47.0); LYMPHOCYTES # 0.6 10^3/ul (0.8-2.9); LYMPHOCYTES % 15.1 % (15.0-51.0); MEAN CORPUSCULAR HEMOGLOBIN 26.8 pg (29.0-33.0); MEAN CORPUSCULAR HGB CONC 31.3 g/dl (32.0-37.0); MEAN CORPUSCULAR VOLUME 85.5 fl (82.0-101.0); MEAN PLATELET VOLUME 10.5 fl (7.4-10.4); MONOCYTE # 0.6 10^3/ul (0.3-0.9); MONOCYTES % 13.4 % (0.0-11.0); NEUTROPHIL # 2.7 10^3/ul (1.6-7.5); NEUTROPHILS % 65.3 % (39.0-77.0); PLATELET COUNT 128 10^3/UL (140-415); RED BLOOD COUNT 4.48 10^6/ul (4.20-5.40); RED CELL DISTRIBUTION WIDTH 15.6 % (11.5-14.5)
[2018-10-05 06:55] LABS: ALANINE AMINOTRANSFERASE 16 IU/L (13-69); ALBUMIN 3.5 g/dl (3.3-4.9); ALBUMIN/GLOBULIN RATIO 1.45; ALKALINE PHOSPHATASE 114 IU/L (42-121); ANION GAP 13 (5-13); ASPARTATE AMINO TRANSFERASE 18 IU/L (15-46); BILIRUBIN,INDIRECT 0.2 mg/dl (0-1.1); BILIRUBIN,TOTAL 0.2 mg/dl (0.2-1.3); BLOOD UREA NITROGEN 42 mg/dl (7-20); CALCIUM 9.5 mg/dl (8.4-10.2); CARBON DIOXIDE 28 mmol/L (21-31); CHLORIDE 90 mmol/L (97-110); CREATININE 5.81 mg/dl (0.44-1.00); Estimated GFR 7 mL/min (>60); POTASSIUM 4.4 mmol/L (3.5-5.1); SODIUM 131 mmol/L (135-144); TOTAL PROTEIN 5.9 g/dl (6.1-8.1)
[2018-10-05 07:03] LABS: GLUCOSE 515 mg/dl (70-220)
[2018-10-05] MEDS ORDERED: PIPER-TAZO 2.25 GM (PMX) 50 ML IVPB (08:00)
[2018-10-05] MEDS ORDERED: CLINDAMYCIN 600 MG/D5W (PMX) 50 ML IVPB (08:00)
[2018-10-05] MEDS: CALCIUM ACETATE 667 MG CAP PO ×3 (08:15→17:02)
[2018-10-05] MEDS: CREON (24K-76K-120K) 1 CAP PO ×3 (08:15→17:02)
[2018-10-05] MEDS: ISOSORBIDE MONONITRATE(SR)60 MG TAB PO (08:53)
[2018-10-05] MEDS: CHOLECALCIFEROL 1,000 UNIT TAB PO (08:54)
[2018-10-05] MEDS: CLOPIDOGREL 75 MG TAB PO (08:54)
[2018-10-05] MEDS: ZYVOX 600 MG TAB PO ×2 (08:54→21:19)
[2018-10-05] MEDS: MULTIVIT/CA CARB/B CMPLX/FA TAB PO (08:55)
[2018-10-05] MEDS: INSULIN GLARGINE [LANTus] (100 UNITS/ML) SYG SC ×2 (09:06→21:49)
[2018-10-05] MEDS: PIPER-TAZO 2.25 GM (PMX) 50 ML IVPB ×3 (09:10→21:32)
[2018-10-05] MEDS: APIXABAN 5 MG TABLET PO ×2 (09:10→21:18)
[2018-10-05] MEDS: HYDROCODONE/APAP (5/325) TAB PO ×2 (10:58→22:41)
[2018-10-05] MEDS ORDERED: INSULIN GLARGINE [LANTus] (100 UNITS/ML) SYG SC (21:00)
[2018-10-05] MEDS: ZOLPIDEM 5 MG TAB PO (21:52)
[2018-10-06] MEDS: ACCU-CHEK XX (02:00)
[2018-10-06] MEDS: PANTOPRAZOLE (EC) 40 MG TAB PO (06:26)
[2018-10-06] MEDS: LEVOTHYROXINE 100 MCG TAB PO (06:26)
[2018-10-06] MEDS: PIPER-TAZO 2.25 GM (PMX) 50 ML IVPB ×3 (06:27→22:00)
[2018-10-06 06:59] LABS: ADD MAN DIFF? NO
[2018-10-06 07:09] LABS: WHITE BLOOD COUNT 4.1 10^3/ul (4.8-10.8)
[2018-10-06 07:09] LABS: BASOPHIL # 0.1 10^3/ul (0.0-0.1); BASOPHILS % 1.5 % (0.0-2.0); EOSINOPHILS # 0.2 10^3/ul (0.0-0.5); EOSINOPHILS % 5.9 % (0.0-7.0); HEMATOCRIT 35.1 % (37.0-47.0); HEMOGLOBIN 11.1 g/dl (12.0-16.0); LYMPHOCYTES # 0.8 10^3/ul (0.8-2.9); LYMPHOCYTES % 18.3 % (15.0-51.0); MEAN CORPUSCULAR HEMOGLOBIN 26.9 pg (29.0-33.0); MEAN CORPUSCULAR HGB CONC 31.6 g/dl (32.0-37.0); MEAN CORPUSCULAR VOLUME 85.2 fl (82.0-101.0); MEAN PLATELET VOLUME 10.6 fl (7.4-10.4); MONOCYTE # 0.4 10^3/ul (0.3-0.9); MONOCYTES % 9.8 % (0.0-11.0); NEUTROPHIL # 2.6 10^3/ul (1.6-7.5); NEUTROPHILS % 64.3 % (39.0-77.0); PLATELET COUNT 141 10^3/UL (140-415); RED BLOOD COUNT 4.12 10^6/ul (4.20-5.40); RED CELL DISTRIBUTION WIDTH 15.6 % (11.5-14.5)
[2018-10-06 07:34] LABS: ANION GAP 14 (5-13); BLOOD UREA NITROGEN 48 mg/dl (7-20); CALCIUM 9.4 mg/dl (8.4-10.2); CARBON DIOXIDE 26 mmol/L (21-31); CHLORIDE 91 mmol/L (97-110); CREATININE 6.63 mg/dl (0.44-1.00); Estimated GFR 6 mL/min (>60); GLUCOSE 137 mg/dl (70-220); POTASSIUM 4.3 mmol/L (3.5-5.1); SODIUM 131 mmol/L (135-144)
[2018-10-06 07:36] LABS: C-REACTIVE PROTEIN 1.9 mg/dl (0.0-0.9)
[2018-10-06] MEDS: SOD CHLORIDE 0.9% 100 ML (08:22)
[2018-10-06] MEDS: IODIXANOL LOCM 100 ML BTL (08:22)
[2018-10-06] MEDS: INSULIN ASPART [NOVOLOG] 3 ML PEN SC ×7 (08:29→20:52)
[2018-10-06 08:34] LABS: ERYTHROCYTE SEDIMENTATION RATE 8 mm/Hr (0-30)
[2018-10-06] MEDS: CALCIUM ACETATE 667 MG CAP PO ×3 (08:39→18:54)
[2018-10-06] MEDS: APIXABAN 5 MG TABLET PO ×2 (08:40→21:02)
[2018-10-06] MEDS: CREON (24K-76K-120K) 1 CAP PO ×3 (08:40→21:01)
[2018-10-06] MEDS: ZYVOX 600 MG TAB PO ×2 (08:40→21:02)
[2018-10-06] MEDS: MULTIVIT/CA CARB/B CMPLX/FA TAB PO (08:40)
[2018-10-06] MEDS: ISOSORBIDE MONONITRATE(SR)60 MG TAB PO (08:42)
[2018-10-06] MEDS: INSULIN GLARGINE [LANTus] (100 UNITS/ML) SYG SC ×2 (08:59→21:10)
[2018-10-06] MEDS: CLOPIDOGREL 75 MG TAB PO (09:03)
[2018-10-06 12:05] LABS: HEPATITIS B SURFACE ANTIGEN NEGATIVE (NEGATIVE)
[2018-10-06] MEDS: CHOLECALCIFEROL 1,000 UNIT TAB PO (13:50)
[2018-10-06] MEDS: HYDROCODONE/APAP (5/325) TAB PO ×2 (16:11→19:56)
[2018-10-06] MEDS: LIDOCAINE 1% (MDV) 20 ML INJ INJ (16:33)
[2018-10-06] MEDS: ZOLPIDEM 5 MG TAB PO (23:03)
[2018-10-07] MEDS: HYDROCODONE/APAP (5/325) TAB PO ×3 (00:11→21:52)
[2018-10-07] MEDS: ACETAMINOPHEN 325 MG TAB PO (01:52)
[2018-10-07] MEDS: ACCU-CHEK XX (02:00)
[2018-10-07] MEDS: PIPER-TAZO 2.25 GM (PMX) 50 ML IVPB ×3 (05:50→21:42)
[2018-10-07] MEDS: INSULIN ASPART [NOVOLOG] 3 ML PEN SC ×7 (07:55→21:13)
[2018-10-07] MEDS: INSULIN GLARGINE [LANTus] (100 UNITS/ML) SYG SC ×2 (08:30→20:00)
[2018-10-07] MEDS: ZYVOX 600 MG TAB PO ×2 (08:32→20:31)
[2018-10-07] MEDS: CREON (24K-76K-120K) 1 CAP PO ×3 (08:32→17:55)
[2018-10-07] MEDS: LEVOTHYROXINE 100 MCG TAB PO (08:32)
[2018-10-07] MEDS: ISOSORBIDE MONONITRATE(SR)60 MG TAB PO (08:32)
[2018-10-07] MEDS: PANTOPRAZOLE (EC) 40 MG TAB PO (08:33)
[2018-10-07] MEDS: MULTIVIT/CA CARB/B CMPLX/FA TAB PO (08:33)
[2018-10-07] MEDS: CHOLECALCIFEROL 1,000 UNIT TAB PO (08:33)
[2018-10-07] MEDS: APIXABAN 5 MG TABLET PO ×2 (08:33→20:34)
[2018-10-07] MEDS: CLOPIDOGREL 75 MG TAB PO (08:34)
[2018-10-07] MEDS: CALCIUM ACETATE 667 MG CAP PO ×3 (08:34→17:55)
[2018-10-07] MEDS: DEXTROSE 5%-0.45% NACL 1,000 ML IV (08:36)
[2018-10-07 09:01] LABS: ADD MAN DIFF? NO
[2018-10-07 09:09] LABS: WHITE BLOOD COUNT 4.1 10^3/ul (4.8-10.8)
[2018-10-07 09:09] LABS: ABNORMAL IP MESSAGE 1; BASOPHIL # 0.1 10^3/ul (0.0-0.1); BASOPHILS % 1.2 % (0.0-2.0); EOSINOPHILS # 0.2 10^3/ul (0.0-0.5); HEMATOCRIT 35.9 % (37.0-47.0); HEMOGLOBIN 11.1 g/dl (12.0-16.0); LYMPHOCYTES # 0.4 10^3/ul (0.8-2.9); LYMPHOCYTES % 10.6 % (15.0-51.0); MEAN CORPUSCULAR HEMOGLOBIN 26.7 pg (29.0-33.0); MEAN CORPUSCULAR HGB CONC 30.9 g/dl (32.0-37.0); MEAN CORPUSCULAR VOLUME 86.3 fl (82.0-101.0); MEAN PLATELET VOLUME 10.1 fl (7.4-10.4); MONOCYTE # 0.4 10^3/ul (0.3-0.9); MONOCYTES % 9.4 % (0.0-11.0); NEUTROPHILS % 74.6 % (39.0-77.0); PLATELET COUNT 115 10^3/UL (140-415); RED BLOOD COUNT 4.16 10^6/ul (4.20-5.40); RED CELL DISTRIBUTION WIDTH 15.7 % (11.5-14.5)
[2018-10-07 09:12] LABS: POSITIVE DIFF @See below
[2018-10-07 10:15] LABS: ERYTHROCYTE SEDIMENTATION RATE 6 mm/Hr (0-30)
[2018-10-07] MEDS ORDERED: IODIXANOL LOCM 100 ML BTL (11:24)
[2018-10-07] MEDS ORDERED: HEPARIN 1000 UNITS/ML 10 ML INJ (11:24)
[2018-10-07] MEDS ORDERED: MIDAZOLAM 1 MG/ML 2 ML INJ (11:24)
[2018-10-07] MEDS ORDERED: LIDOCAINE 1% (MDV) 20 ML INJ (11:24)
[2018-10-07] MEDS ORDERED: HEPARIN 1000 UNITS/NS (A-LINE) 1,000 ML (11:24)
[2018-10-07] MEDS ORDERED: FENTAnyl 50 MCG/ML VIAL (11:24)
[2018-10-07] MEDS ORDERED: SOD CHLORIDE 0.9% 500 ML (12:14)
[2018-10-07] MEDS: ZOLPIDEM 5 MG TAB PO (21:51)
[2018-10-07] MEDS: LOPERAMIDE 2 MG CAP PO (21:52)
[2018-10-08] MEDS: ACCU-CHEK XX (02:00)
[2018-10-08] MEDS: HYDROCODONE/APAP (5/325) TAB PO ×5 (02:06→22:38)
[2018-10-08] MEDS: DEXTROSE 5%-0.45% NACL 1,000 ML IV (04:30)
[2018-10-08] MEDS: PIPER-TAZO 2.25 GM (PMX) 50 ML IVPB ×3 (05:55→21:46)
[2018-10-08] MEDS: LEVOTHYROXINE 100 MCG TAB PO (05:58)
[2018-10-08] MEDS: PANTOPRAZOLE (EC) 40 MG TAB PO (05:59)
[2018-10-08] MEDS: IODIXANOL LOCM 100 ML BTL (07:42)
[2018-10-08] MEDS: IODIXANOL LOCM 50 ML BTL (07:42)
[2018-10-08] MEDS: INSULIN GLARGINE [LANTus] (100 UNITS/ML) SYG SC ×2 (08:00→21:17)
[2018-10-08] MEDS: POVIDONE IODINE 10% 28.4 GM OINT TOP (08:19)
[2018-10-08] MEDS: EUCERIN 113 GM CR TOP (08:19)
[2018-10-08] MEDS: ZYVOX 600 MG TAB PO ×2 (08:19→20:48)
[2018-10-08] MEDS: CHOLECALCIFEROL 1,000 UNIT TAB PO (08:20)
[2018-10-08] MEDS: CALCIUM ACETATE 667 MG CAP PO ×3 (08:20→17:02)
[2018-10-08] MEDS: APIXABAN 5 MG TABLET PO ×2 (08:20→20:49)
[2018-10-08] MEDS: CREON (24K-76K-120K) 1 CAP PO ×3 (08:20→17:02)
[2018-10-08] MEDS: CLOPIDOGREL 75 MG TAB PO (08:20)
[2018-10-08] MEDS: ISOSORBIDE MONONITRATE(SR)60 MG TAB PO (08:20)
[2018-10-08] MEDS: MULTIVIT/CA CARB/B CMPLX/FA TAB PO (08:20)
[2018-10-08] MEDS: INSULIN ASPART [NOVOLOG] 3 ML PEN SC ×7 (08:24→21:17)
[2018-10-08 13:22] LABS: GLUCOSE 112 mg/dl (70-220)
[2018-10-08] MEDS: LOPERAMIDE 2 MG CAP PO ×2 (13:45→20:56)
[2018-10-08] MEDS: LIDOCAINE 1% (MDV) 20 ML INJ INJ (15:30)
[2018-10-08] MEDS: ACETAMINOPHEN 325 MG TAB PO (18:26)
[2018-10-08] MEDS: ZOLPIDEM 5 MG TAB PO (21:46)
[2018-10-09] MEDS: DEXTROSE 5%-0.45% NACL 1,000 ML IV ×2 (00:30→20:30)
[2018-10-09] MEDS: ACCU-CHEK XX (02:00)
[2018-10-09] MEDS: HYDROCODONE/APAP (5/325) TAB PO ×5 (02:39→20:54)
[2018-10-09] MEDS: PIPER-TAZO 2.25 GM (PMX) 50 ML IVPB ×3 (06:18→21:26)
[2018-10-09] MEDS: LEVOTHYROXINE 100 MCG TAB PO (06:18)
[2018-10-09] MEDS: PANTOPRAZOLE (EC) 40 MG TAB PO (06:19)
[2018-10-09] MEDS: CALCIUM ACETATE 667 MG CAP PO ×3 (08:00→18:11)
[2018-10-09] MEDS: CREON (24K-76K-120K) 1 CAP PO ×3 (08:00→18:11)
[2018-10-09] MEDS: LOPERAMIDE 2 MG CAP PO ×3 (08:01→20:55)
[2018-10-09] MEDS: INSULIN ASPART [NOVOLOG] 3 ML PEN SC ×8 (08:15→20:56)
[2018-10-09] MEDS: INSULIN GLARGINE [LANTus] (100 UNITS/ML) SYG SC ×2 (08:16→20:00)
[2018-10-09] MEDS: EUCERIN 113 GM CR TOP (09:06)
[2018-10-09] MEDS: POVIDONE IODINE 10% 28.4 GM OINT TOP (09:07)
[2018-10-09] MEDS: ISOSORBIDE MONONITRATE(SR)60 MG TAB PO (09:08)
[2018-10-09] MEDS: ZYVOX 600 MG TAB PO ×2 (09:08→20:55)
[2018-10-09] MEDS: CHOLECALCIFEROL 1,000 UNIT TAB PO (09:09)
[2018-10-09] MEDS: CLOPIDOGREL 75 MG TAB PO (09:10)
[2018-10-09] MEDS: MULTIVIT/CA CARB/B CMPLX/FA TAB PO (09:10)
[2018-10-09] MEDS: APIXABAN 5 MG TABLET PO ×2 (09:10→20:55)
[2018-10-09] MEDS ORDERED: AL HYDROX/MG HYDROX/SIMETH 30 ML CUP PO (12:00)
[2018-10-09] MEDS: DIPHENOXYLATE/ATROPINE TAB PO (16:18)
[2018-10-09] MEDS: ZOLPIDEM 5 MG TAB PO (21:26)
[2018-10-10] MEDS: HYDROCODONE/APAP (5/325) TAB PO ×4 (00:45→22:10)
[2018-10-10] MEDS: ACCU-CHEK XX (02:00)
[2018-10-10] MEDS: PIPER-TAZO 2.25 GM (PMX) 50 ML IVPB ×3 (05:45→21:47)
[2018-10-10] MEDS: PANTOPRAZOLE (EC) 40 MG TAB PO (05:46)
[2018-10-10] MEDS: LEVOTHYROXINE 100 MCG TAB PO (05:46)
[2018-10-10] MEDS: POVIDONE IODINE 10% 28.4 GM OINT TOP (08:12)
[2018-10-10] MEDS: EUCERIN 113 GM CR TOP (08:12)
[2018-10-10] MEDS: CREON (24K-76K-120K) 1 CAP PO ×3 (08:13→17:22)
[2018-10-10] MEDS: ZYVOX 600 MG TAB PO ×2 (08:13→21:44)
[2018-10-10] MEDS: CALCIUM ACETATE 667 MG CAP PO ×3 (08:13→17:22)
[2018-10-10] MEDS: APIXABAN 5 MG TABLET PO ×2 (08:13→21:44)
[2018-10-10] MEDS: CHOLECALCIFEROL 1,000 UNIT TAB PO (08:13)
[2018-10-10] MEDS: MULTIVIT/CA CARB/B CMPLX/FA TAB PO (08:13)
[2018-10-10] MEDS: CLOPIDOGREL 75 MG TAB PO (08:13)
[2018-10-10] MEDS: INSULIN ASPART [NOVOLOG] 3 ML PEN SC ×7 (08:29→22:06)
[2018-10-10] MEDS: ISOSORBIDE MONONITRATE(SR)60 MG TAB PO (08:30)
[2018-10-10] MEDS: INSULIN GLARGINE [LANTus] (100 UNITS/ML) SYG SC ×2 (08:30→22:06)
[2018-10-10] MEDS: LOPERAMIDE 2 MG CAP PO ×3 (09:48→23:54)
[2018-10-10] MEDS: LIDOCAINE 1% (MDV) 20 ML INJ INJ (11:04)
[2018-10-10 14:52] LABS: WHITE BLOOD COUNT 3.6 10^3/ul (4.8-10.8)
[2018-10-10 14:52] LABS: ADD MAN DIFF? NO; BASOPHIL # 0.1 10^3/ul (0.0-0.1); BASOPHILS % 1.9 % (0.0-2.0); EOSINOPHILS # 0.2 10^3/ul (0.0-0.5); EOSINOPHILS % 5.8 % (0.0-7.0); HEMATOCRIT 34.1 % (37.0-47.0); HEMOGLOBIN 10.8 g/dl (12.0-16.0); LYMPHOCYTES # 0.8 10^3/ul (0.8-2.9); LYMPHOCYTES % 22.6 % (15.0-51.0); MEAN CORPUSCULAR HEMOGLOBIN 27.2 pg (29.0-33.0); MEAN CORPUSCULAR HGB CONC 31.7 g/dl (32.0-37.0); MEAN CORPUSCULAR VOLUME 85.9 fl (82.0-101.0); MEAN PLATELET VOLUME 10.3 fl (7.4-10.4); MONOCYTE # 0.2 10^3/ul (0.3-0.9); MONOCYTES % 6.3 % (0.0-11.0); NEUTROPHIL # 2.3 10^3/ul (1.6-7.5); NEUTROPHILS % 63.1 % (39.0-77.0); PLATELET COUNT 120 10^3/UL (140-415); RED BLOOD COUNT 3.97 10^6/ul (4.20-5.40); RED CELL DISTRIBUTION WIDTH 15.9 % (11.5-14.5)
[2018-10-10 15:29] LABS: ANION GAP 11 (5-13); BLOOD UREA NITROGEN 24 mg/dl (7-20); CALCIUM 8.8 mg/dl (8.4-10.2); CARBON DIOXIDE 27 mmol/L (21-31); CHLORIDE 93 mmol/L (97-110); Estimated GFR 9 mL/min (>60); GLUCOSE 124 mg/dl (70-220); POTASSIUM 3.2 mmol/L (3.5-5.1); SODIUM 131 mmol/L (135-144)
[2018-10-10 16:00] LABS: ERYTHROCYTE SEDIMENTATION RATE 11 mm/Hr (0-30)
[2018-10-10 18:27] LABS: PROCALCITONIN 0.43 ng/mL (0.00-0.10)
[2018-10-11] MEDS: ZOLPIDEM 5 MG TAB PO (00:48)
[2018-10-11] MEDS: ACCU-CHEK XX (02:00)
[2018-10-11] MEDS: LOPERAMIDE 2 MG CAP PO ×3 (05:01→17:23)
[2018-10-11] MEDS: PIPER-TAZO 2.25 GM (PMX) 50 ML IVPB ×3 (05:01→22:25)
[2018-10-11] MEDS: HYDROCODONE/APAP (5/325) TAB PO ×3 (07:40→17:25)
[2018-10-11] MEDS: POVIDONE IODINE 10% 28.4 GM OINT TOP (08:05)
[2018-10-11] MEDS: EUCERIN 113 GM CR TOP (08:05)
[2018-10-11] MEDS: MULTIVIT/CA CARB/B CMPLX/FA TAB PO (08:06)
[2018-10-11] MEDS: CHOLECALCIFEROL 1,000 UNIT TAB PO (08:06)
[2018-10-11] MEDS: CLOPIDOGREL 75 MG TAB PO (08:06)
[2018-10-11] MEDS: ZYVOX 600 MG TAB PO ×2 (08:07→22:25)
[2018-10-11] MEDS: ISOSORBIDE MONONITRATE(SR)60 MG TAB PO (08:07)
[2018-10-11] MEDS: LEVOTHYROXINE 100 MCG TAB PO (08:07)
[2018-10-11] MEDS: CALCIUM ACETATE 667 MG CAP PO ×3 (08:07→17:23)
[2018-10-11] MEDS: PANTOPRAZOLE (EC) 40 MG TAB PO (08:07)
[2018-10-11] MEDS: APIXABAN 5 MG TABLET PO ×2 (08:08→22:25)
[2018-10-11] MEDS: CREON (24K-76K-120K) 1 CAP PO ×3 (08:08→17:23)
[2018-10-11] MEDS: INSULIN ASPART [NOVOLOG] 3 ML PEN SC ×8 (08:10→22:35)
[2018-10-11] MEDS: INSULIN GLARGINE [LANTus] (100 UNITS/ML) SYG SC ×2 (08:12→22:46)
[2018-10-11 12:41] LABS: ANION GAP 11 (5-13); BLOOD UREA NITROGEN 22 mg/dl (7-20); CALCIUM 9.4 mg/dl (8.4-10.2); CARBON DIOXIDE 28 mmol/L (21-31); CHLORIDE 94 mmol/L (97-110); CREATININE 4.43 mg/dl (0.44-1.00); Estimated GFR 10 mL/min (>60); GLUCOSE 120 mg/dl (70-220); POTASSIUM 3.4 mmol/L (3.5-5.1); SODIUM 133 mmol/L (135-144)
[2018-10-12] MEDS: ACCU-CHEK XX (02:18)
[2018-10-12] MEDS: HYDROCODONE/APAP (5/325) TAB PO ×2 (02:57→22:06)
[2018-10-12] MEDS: LOPERAMIDE 2 MG CAP PO ×3 (02:59→22:19)
[2018-10-12] MEDS: PIPER-TAZO 2.25 GM (PMX) 50 ML IVPB ×3 (06:45→22:05)
[2018-10-12] MEDS: LEVOTHYROXINE 100 MCG TAB PO (06:45)
[2018-10-12] MEDS ORDERED: THROMBIN 5000 UNIT VIAL ×2 (07:02→09:52)
[2018-10-12] MEDS ORDERED: GELATIN SIZE 100 SPONGE (07:02)
[2018-10-12] MEDS ORDERED: HEPARIN 1000 UNITS/ML 10 ML INJ (07:02)
[2018-10-12] MEDS ORDERED: LIDOCAINE 1% (MPF) 30 ML INJ (07:02)
[2018-10-12] MEDS: PANTOPRAZOLE (EC) 40 MG TAB PO (07:25)
[2018-10-12] MEDS: CALCIUM ACETATE 667 MG CAP PO ×3 (07:31→17:55)
[2018-10-12] MEDS: CREON (24K-76K-120K) 1 CAP PO ×3 (07:31→17:54)
[2018-10-12] MEDS ORDERED: DEXAMETHASONE 4 MG/ML 5 ML INJ (07:34)
[2018-10-12] MEDS ORDERED: MIDAZOLAM 1 MG/ML 2 ML INJ (07:34)
[2018-10-12] MEDS ORDERED: NEOSTIGMINE 3 MG/3 ML SYRINGE (07:34)
[2018-10-12] MEDS ORDERED: GLYCOPYRROLATE 0.4 MG INJ (07:34)
[2018-10-12] MEDS ORDERED: ONDANSETRON 4 MG INJ ×2 (07:34→11:14)
[2018-10-12] MEDS ORDERED: CEFAZOLIN 1 GM INJ (07:34)
[2018-10-12] MEDS ORDERED: FENTAnyl 50 MCG/ML VIAL ×2 (07:34→11:14)
[2018-10-12] MEDS ORDERED: ROCURONIUM 50 MG INJ (07:34)
[2018-10-12 07:48] LABS: ADD MAN DIFF? NO
[2018-10-12 07:55] LABS: BASOPHIL # 0.1 10^3/ul (0.0-0.1); EOSINOPHILS # 0.2 10^3/ul (0.0-0.5); EOSINOPHILS % 3.7 % (0.0-7.0); HEMATOCRIT 36.3 % (37.0-47.0); HEMOGLOBIN 11.4 g/dl (12.0-16.0); LYMPHOCYTES # 1.1 10^3/ul (0.8-2.9); LYMPHOCYTES % 23.3 % (15.0-51.0); MEAN CORPUSCULAR HEMOGLOBIN 26.6 pg (29.0-33.0); MEAN CORPUSCULAR HGB CONC 31.4 g/dl (32.0-37.0); MEAN CORPUSCULAR VOLUME 84.8 fl (82.0-101.0); MEAN PLATELET VOLUME 10.5 fl (7.4-10.4); MONOCYTE # 0.4 10^3/ul (0.3-0.9); MONOCYTES % 8.1 % (0.0-11.0); NEUTROPHIL # 2.9 10^3/ul (1.6-7.5); NEUTROPHILS % 62.5 % (39.0-77.0); PLATELET COUNT 117 10^3/UL (140-415); RED BLOOD COUNT 4.28 10^6/ul (4.20-5.40)
[2018-10-12 07:55] LABS: WHITE BLOOD COUNT 4.6 10^3/ul (4.8-10.8)
[2018-10-12] MEDS: INSULIN ASPART [NOVOLOG] 3 ML PEN SC ×7 (07:55→22:03)
[2018-10-12 08:00] LABS: POTASSIUM 3.9 mmol/L (3.5-5.1)
[2018-10-12] MEDS: INSULIN GLARGINE [LANTus] (100 UNITS/ML) SYG SC ×2 (08:00→21:59)
[2018-10-12] MEDS: HEPARIN 1000 UNITS/ML 10 ML INJ IRR (08:02)
[2018-10-12] MEDS: APIXABAN 5 MG TABLET PO ×2 (08:27→22:05)
[2018-10-12] MEDS: CLOPIDOGREL 75 MG TAB PO (08:43)
[2018-10-12] MEDS: ISOSORBIDE MONONITRATE(SR)60 MG TAB PO (08:43)
[2018-10-12] MEDS: CHOLECALCIFEROL 1,000 UNIT TAB PO (08:44)
[2018-10-12] MEDS: MULTIVIT/CA CARB/B CMPLX/FA TAB PO (08:44)
[2018-10-12] MEDS: ZYVOX 600 MG TAB PO ×3 (08:44→22:05)
[2018-10-12] MEDS: EUCERIN 113 GM CR TOP ×2 (08:44→09:00)
[2018-10-12] MEDS: POVIDONE IODINE 10% 28.4 GM OINT TOP ×2 (08:44→09:00)
[2018-10-12] MEDS ORDERED: PROTAMINE 250 MG INJ (09:50)
[2018-10-12] MEDS ORDERED: SUGAMMADEX SODIUM 200 MG/2 ML VIAL IV (10:01)
[2018-10-12] MEDS ORDERED: HYDROmorphONE 1 MG/5 ML IV SYRINGE IV ×2 (11:14→11:30)
[2018-10-12] MEDS ORDERED: METOCLOPRAMIDE 10 MG INJ IV (11:30)
[2018-10-12] MEDS ORDERED: FENTAnyl 50 MCG/ML VIAL IV (11:30)
[2018-10-12] MEDS ORDERED: LABETALOL HCL 20MG INJ IV (11:30)
[2018-10-12] MEDS ORDERED: hydrALAzine 20 MG INJ IV (11:30)
[2018-10-12] MEDS: FENTAnyl 50 MCG/ML VIAL IV (11:37)
[2018-10-12] MEDS: HYDROmorphONE 1 MG/5 ML IV SYRINGE IV (11:37)
[2018-10-12] MEDS: ONDANSETRON 4 MG INJ IV (11:37)
[2018-10-12] MEDS ORDERED: niCARdipine 50 MG in SOD CHLORIDE 0.9% 480 ML IV (14:00)
[2018-10-12] MEDS: ZOLPIDEM 5 MG TAB PO (22:14)
[2018-10-13] MEDS: ACCU-CHEK XX ×4 (02:26→08:32)
[2018-10-13] MEDS: INSULIN ASPART [NOVOLOG] 3 ML PEN SC ×12 (04:31→20:53)
[2018-10-13] MEDS: LOPERAMIDE 2 MG CAP PO ×3 (05:00→19:01)
[2018-10-13 05:25] LABS: ADD MAN DIFF? NO
[2018-10-13 05:33] LABS: WHITE BLOOD COUNT 5.1 10^3/ul (4.8-10.8)
[2018-10-13 05:33] LABS: BASOPHILS % 0.4 % (0.0-2.0); EOSINOPHILS % 0.2 % (0.0-7.0); HEMATOCRIT 34.4 % (37.0-47.0); HEMOGLOBIN 10.7 g/dl (12.0-16.0); LYMPHOCYTES # 0.6 10^3/ul (0.8-2.9); LYMPHOCYTES % 12.1 % (15.0-51.0); MEAN CORPUSCULAR HEMOGLOBIN 26.7 pg (29.0-33.0); MEAN CORPUSCULAR HGB CONC 31.1 g/dl (32.0-37.0); MEAN CORPUSCULAR VOLUME 85.8 fl (82.0-101.0); MEAN PLATELET VOLUME 10.4 fl (7.4-10.4); MONOCYTE # 0.3 10^3/ul (0.3-0.9); MONOCYTES % 5.9 % (0.0-11.0); NEUTROPHIL # 4.1 10^3/ul (1.6-7.5); NEUTROPHILS % 80.8 % (39.0-77.0); PLATELET COUNT 109 10^3/UL (140-415); RED BLOOD COUNT 4.01 10^6/ul (4.20-5.40)
[2018-10-13] MEDS: PIPER-TAZO 2.25 GM (PMX) 50 ML IVPB ×3 (05:42→21:31)
[2018-10-13] MEDS: HYDROCODONE/APAP (5/325) TAB PO ×3 (05:42→16:54)
[2018-10-13 05:52] LABS: ALANINE AMINOTRANSFERASE 12 IU/L (13-69); ALBUMIN 3.2 g/dl (3.3-4.9); ALBUMIN/GLOBULIN RATIO 1.28; ALKALINE PHOSPHATASE 88 IU/L (42-121); ANION GAP 14 (5-13); ASPARTATE AMINO TRANSFERASE 14 IU/L (15-46); BILIRUBIN,INDIRECT 0.2 mg/dl (0-1.1); BILIRUBIN,TOTAL 0.2 mg/dl (0.2-1.3); BLOOD UREA NITROGEN 38 mg/dl (7-20); CALCIUM 9.5 mg/dl (8.4-10.2); CARBON DIOXIDE 24 mmol/L (21-31); CHLORIDE 92 mmol/L (97-110); CREATININE 6.37 mg/dl (0.44-1.00); Estimated GFR 7 mL/min (>60); POTASSIUM 4.4 mmol/L (3.5-5.1); SODIUM 130 mmol/L (135-144); TOTAL PROTEIN 5.7 g/dl (6.1-8.1)
[2018-10-13 05:54] LABS: GLUCOSE 500 mg/dl (70-220)
[2018-10-13] MEDS: PANTOPRAZOLE (EC) 40 MG TAB PO (07:53)
[2018-10-13] MEDS: LEVOTHYROXINE 100 MCG TAB PO (07:53)
[2018-10-13] MEDS: CREON (24K-76K-120K) 1 CAP PO ×3 (07:53→16:17)
[2018-10-13] MEDS: CALCIUM ACETATE 667 MG CAP PO ×3 (07:54→16:17)
[2018-10-13] MEDS: MULTIVIT/CA CARB/B CMPLX/FA TAB PO (07:56)
[2018-10-13] MEDS: CHOLECALCIFEROL 1,000 UNIT TAB PO (07:56)
[2018-10-13] MEDS: CLOPIDOGREL 75 MG TAB PO (07:56)
[2018-10-13] MEDS: APIXABAN 5 MG TABLET PO ×2 (07:58→20:49)
[2018-10-13] MEDS: INSULIN GLARGINE [LANTus] (100 UNITS/ML) SYG SC ×2 (08:01→20:52)
[2018-10-13] MEDS: ALBUTEROL/IPRATROPIUM (NEB) 3 ML AMP HHN (08:23)
[2018-10-13] MEDS: ISOSORBIDE MONONITRATE(SR)60 MG TAB PO (08:32)
[2018-10-13] MEDS: EUCERIN 113 GM CR TOP (08:33)
[2018-10-13] MEDS: POVIDONE IODINE 10% 28.4 GM OINT TOP (08:33)
[2018-10-13] MEDS: ZOLPIDEM 5 MG TAB PO (21:31)
[2018-10-14] MEDS: DIPHENOXYLATE/ATROPINE TAB PO ×3 (00:43→20:43)
[2018-10-14] MEDS: HYDROCODONE/APAP (5/325) TAB PO ×6 (00:45→22:47)
[2018-10-14] MEDS: ACCU-CHEK XX ×2 (01:55→02:29)
[2018-10-14] MEDS: INSULIN ASPART [NOVOLOG] 3 ML PEN SC ×8 (02:26→21:00)
[2018-10-14] MEDS: ACETAMINOPHEN 325 MG TAB PO (02:54)
[2018-10-14] MEDS: PIPER-TAZO 2.25 GM (PMX) 50 ML IVPB (06:11)
[2018-10-14] MEDS: PANTOPRAZOLE (EC) 40 MG TAB PO (06:12)
[2018-10-14] MEDS: CREON (24K-76K-120K) 1 CAP PO ×3 (08:10→17:36)
[2018-10-14] MEDS: ISOSORBIDE MONONITRATE(SR)60 MG TAB PO (08:11)
[2018-10-14] MEDS: CHOLECALCIFEROL 1,000 UNIT TAB PO (08:11)
[2018-10-14] MEDS: CLOPIDOGREL 75 MG TAB PO (08:11)
[2018-10-14] MEDS: LEVOTHYROXINE 100 MCG TAB PO (08:11)
[2018-10-14] MEDS: MULTIVIT/CA CARB/B CMPLX/FA TAB PO (08:11)
[2018-10-14] MEDS: APIXABAN 5 MG TABLET PO (08:11)
[2018-10-14] MEDS: CALCIUM ACETATE 667 MG CAP PO ×3 (08:12→17:36)
[2018-10-14] MEDS: INSULIN GLARGINE [LANTus] (100 UNITS/ML) SYG SC ×2 (09:22→21:15)
[2018-10-14] MEDS: LOPERAMIDE 2 MG CAP PO ×2 (10:10→16:55)
[2018-10-14] MEDS: POVIDONE IODINE 10% 28.4 GM OINT TOP (10:14)
[2018-10-14] MEDS: EUCERIN 113 GM CR TOP (10:14)
[2018-10-14] MEDS: ZOLPIDEM 5 MG TAB PO (23:14)
[2018-10-15] MEDS: ACCU-CHEK XX (02:00)
[2018-10-15] MEDS: INSULIN GLARGINE [LANTus] (100 UNITS/ML) SYG SC ×2 (08:00→22:55)
[2018-10-15] MEDS: LEVOTHYROXINE 100 MCG TAB PO (08:33)
[2018-10-15] MEDS: PANTOPRAZOLE (EC) 40 MG TAB PO (08:34)
[2018-10-15] MEDS: CLOPIDOGREL 75 MG TAB PO (08:34)
[2018-10-15] MEDS: MULTIVIT/CA CARB/B CMPLX/FA TAB PO (08:34)
[2018-10-15] MEDS: CALCIUM ACETATE 667 MG CAP PO ×3 (08:35→17:21)
[2018-10-15] MEDS: CREON (24K-76K-120K) 1 CAP PO ×3 (08:35→17:21)
[2018-10-15] MEDS: CHOLECALCIFEROL 1,000 UNIT TAB PO (08:35)
[2018-10-15] MEDS: ISOSORBIDE MONONITRATE(SR)60 MG TAB PO (08:35)
[2018-10-15] MEDS: INSULIN ASPART [NOVOLOG] 3 ML PEN SC ×7 (08:36→22:35)
[2018-10-15] MEDS: HYDROCODONE/APAP (5/325) TAB PO ×3 (08:37→22:44)
[2018-10-15] MEDS: DIPHENOXYLATE/ATROPINE TAB PO ×3 (08:37→22:43)
[2018-10-15] MEDS: LOPERAMIDE 2 MG CAP PO ×3 (08:37→22:43)
[2018-10-15] MEDS: EUCERIN 113 GM CR TOP (08:40)
[2018-10-15] MEDS: POVIDONE IODINE 10% 28.4 GM OINT TOP (08:40)
[2018-10-15] MEDS: LIDOCAINE 1% (MDV) 20 ML INJ INJ (12:51)
[2018-10-15] MEDS: ZOLPIDEM 5 MG TAB PO (22:43)
[2018-10-16] MEDS: ACCU-CHEK XX (01:35)
[2018-10-16] MEDS: HYDROCODONE/APAP (5/325) TAB PO ×4 (03:02→20:36)
[2018-10-16] MEDS: DIPHENOXYLATE/ATROPINE TAB PO ×3 (06:31→20:35)
[2018-10-16] MEDS: LOPERAMIDE 2 MG CAP PO ×2 (06:31→17:00)
[2018-10-16] MEDS: LEVOTHYROXINE 100 MCG TAB PO (06:31)
[2018-10-16] MEDS: PANTOPRAZOLE (EC) 40 MG TAB PO (08:18)
[2018-10-16] MEDS: CALCIUM ACETATE 667 MG CAP PO ×3 (08:18→17:01)
[2018-10-16] MEDS: CREON (24K-76K-120K) 1 CAP PO ×3 (08:18→17:01)
[2018-10-16] MEDS: INSULIN GLARGINE [LANTus] (100 UNITS/ML) SYG SC ×2 (08:29→20:47)
[2018-10-16] MEDS: INSULIN ASPART [NOVOLOG] 3 ML PEN SC ×7 (08:29→21:00)
[2018-10-16] MEDS: MULTIVIT/CA CARB/B CMPLX/FA TAB PO (08:53)
[2018-10-16] MEDS: CHOLECALCIFEROL 1,000 UNIT TAB PO (08:53)
[2018-10-16] MEDS: ISOSORBIDE MONONITRATE(SR)60 MG TAB PO (08:53)
[2018-10-16] MEDS: EUCERIN 113 GM CR TOP (09:45)
[2018-10-16] MEDS: POVIDONE IODINE 10% 28.4 GM OINT TOP (09:45)
[2018-10-16] MEDS: BENZOIN TINCTURE 60 ML BTL TOP (19:22)
[2018-10-16] MEDS: ZOLPIDEM 5 MG TAB PO (21:45)
[2018-10-17] MEDS: ACCU-CHEK XX (01:54)
[2018-10-17] MEDS: HYDROCODONE/APAP (5/325) TAB PO ×4 (02:03→20:14)
[2018-10-17] MEDS: PANTOPRAZOLE (EC) 40 MG TAB PO (06:16)
[2018-10-17] MEDS: LEVOTHYROXINE 100 MCG TAB PO (06:16)
[2018-10-17 06:21] LABS: ADD MAN DIFF? NO
[2018-10-17 06:23] LABS: WHITE BLOOD COUNT 4.6 10^3/ul (4.8-10.8)
[2018-10-17 06:23] LABS: BASOPHIL # 0.1 10^3/ul (0.0-0.1); BASOPHILS % 1.3 % (0.0-2.0); EOSINOPHILS # 0.2 10^3/ul (0.0-0.5); EOSINOPHILS % 4.6 % (0.0-7.0); HEMATOCRIT 28.7 % (37.0-47.0); HEMOGLOBIN 9.1 g/dl (12.0-16.0); LYMPHOCYTES # 0.9 10^3/ul (0.8-2.9); MEAN CORPUSCULAR HEMOGLOBIN 26.8 pg (29.0-33.0); MEAN CORPUSCULAR HGB CONC 31.7 g/dl (32.0-37.0); MEAN CORPUSCULAR VOLUME 84.7 fl (82.0-101.0); MEAN PLATELET VOLUME 10.4 fl (7.4-10.4); MONOCYTE # 0.5 10^3/ul (0.3-0.9); MONOCYTES % 9.8 % (0.0-11.0); NEUTROPHIL # 2.9 10^3/ul (1.6-7.5); NEUTROPHILS % 63.6 % (39.0-77.0); PLATELET COUNT 108 10^3/UL (140-415); RED BLOOD COUNT 3.39 10^6/ul (4.20-5.40); RED CELL DISTRIBUTION WIDTH 16.1 % (11.5-14.5)
[2018-10-17 07:00] LABS: ALBUMIN/GLOBULIN RATIO 1.11; ALKALINE PHOSPHATASE 87 IU/L (42-121); ANION GAP 12 (5-13); ASPARTATE AMINO TRANSFERASE 20 IU/L (15-46); BILIRUBIN,INDIRECT 0.2 mg/dl (0-1.1); BILIRUBIN,TOTAL 0.2 mg/dl (0.2-1.3); BLOOD UREA NITROGEN 47 mg/dl (7-20); CALCIUM 9.4 mg/dl (8.4-10.2); CARBON DIOXIDE 21 mmol/L (21-31); CHLORIDE 97 mmol/L (97-110); CREATININE 6.32 mg/dl (0.44-1.00); Estimated GFR 7 mL/min (>60); GLUCOSE 175 mg/dl (70-220); SODIUM 130 mmol/L (135-144); TOTAL PROTEIN 5.7 g/dl (6.1-8.1)
[2018-10-17 07:01] LABS: ALANINE AMINOTRANSFERASE < 6 IU/L (13-69)
[2018-10-17] MEDS: CREON (24K-76K-120K) 1 CAP PO ×3 (08:06→17:55)
[2018-10-17] MEDS: CALCIUM ACETATE 667 MG CAP PO ×3 (08:06→17:55)
[2018-10-17] MEDS: INSULIN ASPART [NOVOLOG] 3 ML PEN SC ×7 (08:11→20:21)
[2018-10-17] MEDS: ISOSORBIDE MONONITRATE(SR)60 MG TAB PO (09:00)
[2018-10-17] MEDS: LIDOCAINE 1% (MDV) 20 ML INJ INJ (09:02)
[2018-10-17] MEDS: CHOLECALCIFEROL 1,000 UNIT TAB PO (09:09)
[2018-10-17] MEDS: MULTIVIT/CA CARB/B CMPLX/FA TAB PO (09:09)
[2018-10-17] MEDS: LOPERAMIDE 2 MG CAP PO ×2 (09:09→20:12)
[2018-10-17] MEDS: INSULIN GLARGINE [LANTus] (100 UNITS/ML) SYG SC ×2 (09:16→20:00)
[2018-10-17] MEDS: POVIDONE IODINE 10% 28.4 GM OINT TOP (11:05)
[2018-10-17] MEDS: DIPHENOXYLATE/ATROPINE TAB PO ×2 (11:18→20:12)
[2018-10-17] MEDS: EUCERIN 113 GM CR TOP (11:20)
[2018-10-17] MEDS: ZOLPIDEM 5 MG TAB PO ×2 (21:41→22:20)
[2018-10-18] MEDS: HYDROCODONE/APAP (5/325) TAB PO ×4 (00:10→21:06)
[2018-10-18] MEDS: ACCU-CHEK XX (02:00)
[2018-10-18] MEDS: PANTOPRAZOLE (EC) 40 MG TAB PO (07:05)
[2018-10-18] MEDS: LEVOTHYROXINE 100 MCG TAB PO (07:05)
[2018-10-18] MEDS: INSULIN ASPART [NOVOLOG] 3 ML PEN SC ×10 (07:55→21:00)
[2018-10-18] MEDS: INSULIN GLARGINE [LANTus] (100 UNITS/ML) SYG SC ×3 (08:00→21:26)
[2018-10-18] MEDS: CREON (24K-76K-120K) 1 CAP PO ×3 (08:23→17:29)
[2018-10-18] MEDS: CALCIUM ACETATE 667 MG CAP PO ×3 (08:23→17:30)
[2018-10-18] MEDS: DIPHENOXYLATE/ATROPINE TAB PO ×2 (09:33→21:00)
[2018-10-18] MEDS: LOPERAMIDE 2 MG CAP PO ×2 (09:33→21:05)
[2018-10-18] MEDS: CHOLECALCIFEROL 1,000 UNIT TAB PO (09:34)
[2018-10-18] MEDS: ISOSORBIDE MONONITRATE(SR)60 MG TAB PO (09:34)
[2018-10-18] MEDS: MULTIVIT/CA CARB/B CMPLX/FA TAB PO (09:35)
[2018-10-18] MEDS: EUCERIN 113 GM CR TOP (09:35)
[2018-10-18] MEDS: POVIDONE IODINE 10% 28.4 GM OINT TOP (09:36)
[2018-10-18] MEDS: ZOLPIDEM 5 MG TAB PO (22:22)
[2018-10-19] MEDS: ACCU-CHEK XX (02:00)
[2018-10-19] MEDS: HYDROCODONE/APAP (5/325) TAB PO ×5 (02:03→20:07)
[2018-10-19] MEDS: DIPHENOXYLATE/ATROPINE TAB PO ×3 (06:10→20:07)
[2018-10-19] MEDS: LEVOTHYROXINE 100 MCG TAB PO (06:11)
[2018-10-19] MEDS ORDERED: HEPARIN 1000 UNITS/NS (A-LINE) 1,000 ML (07:50)
[2018-10-19] MEDS ORDERED: LIDOCAINE 1% (MDV) 20 ML INJ (07:50)
[2018-10-19] MEDS ORDERED: IODIXANOL LOCM 100 ML BTL (07:50)
[2018-10-19] MEDS: INSULIN ASPART [NOVOLOG] 3 ML PEN SC ×6 (07:55→20:09)
[2018-10-19] MEDS: ISOSORBIDE MONONITRATE(SR)60 MG TAB PO (09:25)
[2018-10-19] MEDS: CREON (24K-76K-120K) 1 CAP PO ×3 (09:25→17:57)
[2018-10-19] MEDS: CLOPIDOGREL 75 MG TAB PO ×2 (09:25→09:31)
[2018-10-19] MEDS: CHOLECALCIFEROL 1,000 UNIT TAB PO (09:25)
[2018-10-19] MEDS: CALCIUM ACETATE 667 MG CAP PO ×3 (09:26→17:57)
[2018-10-19] MEDS: APIXABAN 5 MG TABLET PO ×2 (09:26→20:07)
[2018-10-19] MEDS: LOPERAMIDE 2 MG CAP PO ×2 (09:26→20:07)
[2018-10-19] MEDS: MULTIVIT/CA CARB/B CMPLX/FA TAB PO (09:26)
[2018-10-19] MEDS: PANTOPRAZOLE (EC) 40 MG TAB PO (09:26)
[2018-10-19] MEDS: EUCERIN 113 GM CR TOP (09:27)
[2018-10-19] MEDS: POVIDONE IODINE 10% 28.4 GM OINT TOP (09:27)
[2018-10-19] MEDS: INSULIN GLARGINE [LANTus] (100 UNITS/ML) SYG SC ×2 (09:49→20:17)
[2018-10-19] MEDS: ZOLPIDEM 5 MG TAB PO (21:46)
[2018-10-20] MEDS: ACCU-CHEK XX (02:00)
[2018-10-20] MEDS: HYDROCODONE/APAP (5/325) TAB PO ×2 (05:00→21:13)
[2018-10-20] MEDS: LEVOTHYROXINE 100 MCG TAB PO (05:01)
[2018-10-20] MEDS: PANTOPRAZOLE (EC) 40 MG TAB PO (05:01)
[2018-10-20] MEDS: INSULIN ASPART [NOVOLOG] 3 ML PEN SC ×4 (07:48→21:00)
[2018-10-20] MEDS: INSULIN GLARGINE [LANTus] (100 UNITS/ML) SYG SC ×2 (08:06→21:33)
[2018-10-20] MEDS: CALCIUM ACETATE 667 MG CAP PO ×3 (08:54→17:24)
[2018-10-20] MEDS: APIXABAN 5 MG TABLET PO ×2 (08:54→21:14)
[2018-10-20] MEDS: MULTIVIT/CA CARB/B CMPLX/FA TAB PO (08:54)
[2018-10-20] MEDS: CLOPIDOGREL 75 MG TAB PO (08:54)
[2018-10-20] MEDS: CREON (24K-76K-120K) 1 CAP PO ×3 (08:54→17:24)
[2018-10-20] MEDS: CHOLECALCIFEROL 1,000 UNIT TAB PO (08:54)
[2018-10-20] MEDS: LOPERAMIDE 2 MG CAP PO ×4 (08:55→21:14)
[2018-10-20] MEDS: ISOSORBIDE MONONITRATE(SR)60 MG TAB PO (08:56)
[2018-10-20] MEDS: DIPHENOXYLATE/ATROPINE TAB PO ×4 (09:01→21:13)
[2018-10-20] MEDS: POVIDONE IODINE 10% 28.4 GM OINT TOP (09:06)
[2018-10-20] MEDS: EUCERIN 113 GM CR TOP (09:06)
[2018-10-20] MEDS: LIDOCAINE 1% (MDV) 20 ML INJ INJ (13:08)
[2018-10-20 14:40] LABS: ADD MAN DIFF? NO
[2018-10-20 14:43] LABS: WHITE BLOOD COUNT 3.8 10^3/ul (4.8-10.8)
[2018-10-20 14:43] LABS: BASOPHIL # 0.1 10^3/ul (0.0-0.1); BASOPHILS % 1.3 % (0.0-2.0); EOSINOPHILS # 0.2 10^3/ul (0.0-0.5); HEMATOCRIT 25.8 % (37.0-47.0); HEMOGLOBIN 8.2 g/dl (12.0-16.0); LYMPHOCYTES # 0.7 10^3/ul (0.8-2.9); LYMPHOCYTES % 18.3 % (15.0-51.0); MEAN CORPUSCULAR HEMOGLOBIN 26.9 pg (29.0-33.0); MEAN CORPUSCULAR HGB CONC 31.8 g/dl (32.0-37.0); MEAN CORPUSCULAR VOLUME 84.6 fl (82.0-101.0); MEAN PLATELET VOLUME 10.2 fl (7.4-10.4); MONOCYTE # 0.3 10^3/ul (0.3-0.9); NEUTROPHIL # 2.5 10^3/ul (1.6-7.5); NEUTROPHILS % 66.1 % (39.0-77.0); PLATELET COUNT 178 10^3/UL (140-415); RED BLOOD COUNT 3.05 10^6/ul (4.20-5.40); RED CELL DISTRIBUTION WIDTH 16.2 % (11.5-14.5)
[2018-10-20 15:05] LABS: ALANINE AMINOTRANSFERASE 21 IU/L (13-69); ALBUMIN/GLOBULIN RATIO 1.11; ALKALINE PHOSPHATASE 115 IU/L (42-121); ANION GAP 15 (5-13); ASPARTATE AMINO TRANSFERASE 21 IU/L (15-46); BILIRUBIN,INDIRECT 0.3 mg/dl (0-1.1); BILIRUBIN,TOTAL 0.3 mg/dl (0.2-1.3); BLOOD UREA NITROGEN 60 mg/dl (7-20); CALCIUM 9.1 mg/dl (8.4-10.2); CARBON DIOXIDE 25 mmol/L (21-31); CHLORIDE 87 mmol/L (97-110); CREATININE 6.48 mg/dl (0.44-1.00); Estimated GFR 6 mL/min (>60); GLUCOSE 124 mg/dl (70-220); SODIUM 127 mmol/L (135-144); TOTAL PROTEIN 5.7 g/dl (6.1-8.1)
[2018-10-20] MEDS: EPOETIN ALFA-EPBX (ESRD) 10,000 UNIT/ML VIAL SC (17:25)
[2018-10-20] MEDS: CHOLESTYRAMINE 4 GM PACKET PO (21:00)
[2018-10-20] MEDS: ZOLPIDEM 5 MG TAB PO (21:13)
[2018-10-21] MEDS: HYDROCODONE/APAP (5/325) TAB PO ×4 (01:29→21:40)
[2018-10-21] MEDS: DIPHENOXYLATE/ATROPINE TAB PO ×4 (01:34→23:27)
[2018-10-21] MEDS: LOPERAMIDE 2 MG CAP PO ×5 (01:34→21:40)
[2018-10-21] MEDS: ACCU-CHEK XX (02:00)
[2018-10-21] MEDS: PANTOPRAZOLE (EC) 40 MG TAB PO (06:01)
[2018-10-21] MEDS: LEVOTHYROXINE 100 MCG TAB PO (06:01)
[2018-10-21] MEDS: INSULIN ASPART [NOVOLOG] 3 ML PEN SC ×4 (07:55→20:29)
[2018-10-21] MEDS: INSULIN GLARGINE [LANTus] (100 UNITS/ML) SYG SC ×2 (08:00→20:29)
[2018-10-21] MEDS: CALCIUM ACETATE 667 MG CAP PO ×3 (08:22→17:41)
[2018-10-21] MEDS: CREON (24K-76K-120K) 1 CAP PO ×3 (08:22→17:41)
[2018-10-21] MEDS: EUCERIN 113 GM CR TOP (09:00)
[2018-10-21] MEDS: POVIDONE IODINE 10% 28.4 GM OINT TOP (09:00)
[2018-10-21] MEDS: CHOLECALCIFEROL 1,000 UNIT TAB PO (11:29)
[2018-10-21] MEDS: APIXABAN 5 MG TABLET PO ×2 (11:29→20:22)
[2018-10-21] MEDS: MULTIVIT/CA CARB/B CMPLX/FA TAB PO (11:29)
[2018-10-21] MEDS: ISOSORBIDE MONONITRATE(SR)60 MG TAB PO (11:29)
[2018-10-21] MEDS: CHOLESTYRAMINE 4 GM PACKET PO ×3 (11:30→20:23)
[2018-10-21] MEDS: CLOPIDOGREL 75 MG TAB PO (11:30)
[2018-10-21] MEDS: ZOLPIDEM 5 MG TAB PO (21:40)
[2018-10-22] MEDS: ACCU-CHEK XX (02:00)
[2018-10-22] MEDS: HYDROCODONE/APAP (5/325) TAB PO ×3 (02:27→21:07)
[2018-10-22] MEDS: LOPERAMIDE 2 MG CAP PO ×4 (02:28→20:36)
[2018-10-22] MEDS: DIPHENOXYLATE/ATROPINE TAB PO ×3 (05:23→21:05)
[2018-10-22] MEDS: LEVOTHYROXINE 100 MCG TAB PO (05:23)
[2018-10-22] MEDS: PANTOPRAZOLE (EC) 40 MG TAB PO (05:24)
[2018-10-22] MEDS: INSULIN ASPART [NOVOLOG] 3 ML PEN SC ×4 (07:55→20:53)
[2018-10-22] MEDS: CALCIUM ACETATE 667 MG CAP PO ×3 (08:04→17:16)
[2018-10-22] MEDS: CLOPIDOGREL 75 MG TAB PO (08:04)
[2018-10-22] MEDS: CREON (24K-76K-120K) 1 CAP PO ×3 (08:04→17:16)
[2018-10-22] MEDS: APIXABAN 5 MG TABLET PO ×2 (08:05→20:36)
[2018-10-22] MEDS: MULTIVIT/CA CARB/B CMPLX/FA TAB PO (08:06)
[2018-10-22] MEDS: EUCERIN 113 GM CR TOP (08:07)
[2018-10-22] MEDS: INSULIN GLARGINE [LANTus] (100 UNITS/ML) SYG SC ×2 (08:28→20:52)
[2018-10-22] MEDS: CHOLECALCIFEROL 1,000 UNIT TAB PO (08:46)
[2018-10-22] MEDS: ISOSORBIDE MONONITRATE(SR)60 MG TAB PO (08:47)
[2018-10-22] MEDS: POVIDONE IODINE 10% 28.4 GM OINT TOP (08:47)
[2018-10-22] MEDS: CHOLESTYRAMINE 4 GM PACKET PO ×3 (08:47→20:36)
[2018-10-22] MEDS: LIDOCAINE 1% (MDV) 20 ML INJ INJ (09:35)
[2018-10-22] MEDS: EPOETIN ALFA-EPBX (ESRD) 10,000 UNIT/ML VIAL SC (17:21)
[2018-10-22] MEDS: ZOLPIDEM 5 MG TAB PO (22:03)
[2018-10-22] MEDS: ACETAMINOPHEN 325 MG TAB PO (23:37)
[2018-10-23] MEDS: HYDROCODONE/APAP (5/325) TAB PO ×2 (01:03→17:26)
[2018-10-23] MEDS: ACCU-CHEK XX (02:00)
[2018-10-23] MEDS: LEVOTHYROXINE 100 MCG TAB PO (06:45)
[2018-10-23] MEDS: INSULIN ASPART [NOVOLOG] 3 ML PEN SC ×4 (07:55→20:54)
[2018-10-23] MEDS: EUCERIN 113 GM CR TOP (09:00)
[2018-10-23 10:13] LABS: ADD MAN DIFF? NO
[2018-10-23 10:14] LABS: WHITE BLOOD COUNT 3.9 10^3/ul (4.8-10.8)
[2018-10-23 10:14] LABS: BASOPHIL # 0.1 10^3/ul (0.0-0.1); BASOPHILS % 1.5 % (0.0-2.0); EOSINOPHILS # 0.1 10^3/ul (0.0-0.5); EOSINOPHILS % 3.1 % (0.0-7.0); HEMOGLOBIN 8.6 g/dl (12.0-16.0); LYMPHOCYTES # 0.8 10^3/ul (0.8-2.9); LYMPHOCYTES % 20.6 % (15.0-51.0); MEAN CORPUSCULAR HGB CONC 30.7 g/dl (32.0-37.0); MEAN CORPUSCULAR VOLUME 88.1 fl (82.0-101.0); MEAN PLATELET VOLUME 9.7 fl (7.4-10.4); MONOCYTE # 0.4 10^3/ul (0.3-0.9); MONOCYTES % 11.1 % (0.0-11.0); NEUTROPHIL # 2.5 10^3/ul (1.6-7.5); NEUTROPHILS % 63.4 % (39.0-77.0); PLATELET COUNT 183 10^3/UL (140-415); RED BLOOD COUNT 3.18 10^6/ul (4.20-5.40); RED CELL DISTRIBUTION WIDTH 16.7 % (11.5-14.5)
[2018-10-23] MEDS: APIXABAN 5 MG TABLET PO ×2 (10:14→20:53)
[2018-10-23] MEDS: CHOLECALCIFEROL 1,000 UNIT TAB PO (10:14)
[2018-10-23] MEDS: MULTIVIT/CA CARB/B CMPLX/FA TAB PO (10:14)
[2018-10-23] MEDS: CLOPIDOGREL 75 MG TAB PO (10:14)
[2018-10-23] MEDS: CREON (24K-76K-120K) 1 CAP PO ×3 (10:15→17:25)
[2018-10-23] MEDS: LOPERAMIDE 2 MG CAP PO ×3 (10:15→20:52)
[2018-10-23] MEDS: CALCIUM ACETATE 667 MG CAP PO ×3 (10:15→17:25)
[2018-10-23] MEDS: ISOSORBIDE MONONITRATE(SR)60 MG TAB PO (10:15)
[2018-10-23] MEDS: PANTOPRAZOLE (EC) 40 MG TAB PO (10:15)
[2018-10-23] MEDS: POVIDONE IODINE 10% 28.4 GM OINT TOP (10:16)
[2018-10-23] MEDS: INSULIN GLARGINE [LANTus] (100 UNITS/ML) SYG SC ×2 (10:21→20:00)
[2018-10-23] MEDS: DIPHENOXYLATE/ATROPINE TAB PO ×3 (10:22→21:32)
[2018-10-23] MEDS: CHOLESTYRAMINE 4 GM PACKET PO ×3 (10:22→20:53)
[2018-10-23 10:32] LABS: ALANINE AMINOTRANSFERASE 23 IU/L (13-69); ALBUMIN 3.2 g/dl (3.3-4.9); ALBUMIN/GLOBULIN RATIO 1.23; ALKALINE PHOSPHATASE 190 IU/L (42-121); ANION GAP 11 (5-13); ASPARTATE AMINO TRANSFERASE 35 IU/L (15-46); BILIRUBIN,INDIRECT 0.2 mg/dl (0-1.1); BILIRUBIN,TOTAL 0.2 mg/dl (0.2-1.3); BLOOD UREA NITROGEN 38 mg/dl (7-20); CALCIUM 9.8 mg/dl (8.4-10.2); CARBON DIOXIDE 25 mmol/L (21-31); CHLORIDE 99 mmol/L (97-110); CREATININE 5.14 mg/dl (0.44-1.00); Estimated GFR 8 mL/min (>60); GLUCOSE 129 mg/dl (70-220); POTASSIUM 4.8 mmol/L (3.5-5.1); SODIUM 135 mmol/L (135-144); TOTAL PROTEIN 5.8 g/dl (6.1-8.1)
[2018-10-23] MEDS: ZOLPIDEM 5 MG TAB PO (23:08)
[2018-10-24] MEDS: HYDROCODONE/APAP (5/325) TAB PO ×3 (01:20→14:09)
[2018-10-24] MEDS: ACCU-CHEK XX (01:42)
[2018-10-24] MEDS: LEVOTHYROXINE 100 MCG TAB PO (06:10)
[2018-10-24] MEDS: INSULIN ASPART [NOVOLOG] 3 ML PEN SC ×3 (07:55→17:01)
[2018-10-24] MEDS: INSULIN GLARGINE [LANTus] (100 UNITS/ML) SYG SC (08:00)
[2018-10-24] MEDS: ISOSORBIDE MONONITRATE(SR)60 MG TAB PO (09:00)
[2018-10-24] MEDS: MULTIVIT/CA CARB/B CMPLX/FA TAB PO (09:20)
[2018-10-24] MEDS: CHOLECALCIFEROL 1,000 UNIT TAB PO (09:20)
[2018-10-24] MEDS: DIPHENOXYLATE/ATROPINE TAB PO ×2 (09:20→12:26)
[2018-10-24] MEDS: CHOLESTYRAMINE 4 GM PACKET PO ×2 (09:20→12:14)
[2018-10-24] MEDS: CREON (24K-76K-120K) 1 CAP PO ×3 (09:21→17:02)
[2018-10-24] MEDS: CALCIUM ACETATE 667 MG CAP PO ×3 (09:23→17:01)
[2018-10-24] MEDS: CLOPIDOGREL 75 MG TAB PO (09:23)
[2018-10-24] MEDS: PANTOPRAZOLE (EC) 40 MG TAB PO (09:23)
[2018-10-24] MEDS: APIXABAN 5 MG TABLET PO (09:23)
[2018-10-24] MEDS: EUCERIN 113 GM CR TOP (09:24)
[2018-10-24] MEDS: POVIDONE IODINE 10% 28.4 GM OINT TOP (09:24)
[2018-10-24] MEDS: LOPERAMIDE 2 MG CAP PO ×2 (09:25→12:26)
[2018-10-24] MEDS: LIDOCAINE 1% (MDV) 20 ML INJ SC (14:38)
[2018-10-24] MEDS: EPOETIN ALFA-EPBX (ESRD) 10,000 UNIT/ML VIAL SC (17:00)
== END 2018-10-24 19:00 | DRG 252 ==
LOC: ICU 10-12 07:13 → TEL 10-14 03:26 → E/R 15:07 → ICU 10-12 20:14 → TEL 18:38
PROC: 04CL0ZZ Extirpation of Matter from Left Femoral Artery, Open Approach (ICD-10-PCS; principal; 2018-10-07 11:24)
PROC: B41DYZZ Fluoroscopy of Aorta and Bilateral Lower Extremity Arteries using Other Contrast (ICD-10-PCS; 2018-10-07 11:24)
PROC: 05753ZZ Dilation of Right Subclavian Vein, Percutaneous Approach (ICD-10-PCS; 2018-10-07 11:24)
PROC: 04UL0KZ Supplement Left Femoral Artery with Nonautologous Tissue Substitute, Open Approach (ICD-10-PCS; 2018-10-07 11:24)
PROC: B51WYZZ Fluoroscopy of Dialysis Shunt/Fistula using Other Contrast (ICD-10-PCS; 2018-10-07 11:24)
PROC: 5A1D70Z Performance of Urinary Filtration, Intermittent, Less than 6 Hours Per Day (ICD-10-PCS; 2018-10-07 11:24)
PROC: 5A1D70Z Performance of Urinary Filtration, Intermittent, Less than 6 Hours Per Day (ICD-10-PCS; 2018-10-07 11:24)
PROC: 5A1D70Z Performance of Urinary Filtration, Intermittent, Less than 6 Hours Per Day (ICD-10-PCS; 2018-10-07 11:24)
PROC: 5A1D70Z Performance of Urinary Filtration, Intermittent, Less than 6 Hours Per Day (ICD-10-PCS; 2018-10-07 11:24)
PROC: 5A1D70Z Performance of Urinary Filtration, Intermittent, Less than 6 Hours Per Day (ICD-10-PCS; 2018-10-07 11:24)
PROC: 5A1D70Z Performance of Urinary Filtration, Intermittent, Less than 6 Hours Per Day (ICD-10-PCS; 2018-10-07 11:24)
PROC: 5A1D70Z Performance of Urinary Filtration, Intermittent, Less than 6 Hours Per Day (ICD-10-PCS; 2018-10-07 11:24)
PROC: 5A1D70Z Performance of Urinary Filtration, Intermittent, Less than 6 Hours Per Day (ICD-10-PCS; 2018-10-07 11:24)
PROC: 5A1D70Z Performance of Urinary Filtration, Intermittent, Less than 6 Hours Per Day (ICD-10-PCS; 2018-10-07 11:24)
DX: E10.52 Type 1 diabetes mellitus with diabetic peripheral angiopathy with gangrene (principal); N18.6 End stage renal disease; I13.11 Hypertensive heart and chronic kidney disease without heart failure, with stage 5 chronic kidney disease, or end stage renal disease; E10.21 Type 1 diabetes mellitus with diabetic nephropathy; E10.42 Type 1 diabetes mellitus with diabetic polyneuropathy; E10.621 Type 1 diabetes mellitus with foot ulcer; E10.22 Type 1 diabetes mellitus with diabetic chronic kidney disease; L97.529 Non-pressure chronic ulcer of other part of left foot with unspecified severity; E83.39 Other disorders of phosphorus metabolism; I82.B21 Chronic embolism and thrombosis of right subclavian vein; I48.0 Paroxysmal atrial fibrillation; I25.10 Atherosclerotic heart disease of native coronary artery without angina pectoris; D63.1 Anemia in chronic kidney disease; E10.319 Type 1 diabetes mellitus with unspecified diabetic retinopathy without macular edema; R00.1 Bradycardia, unspecified; K52.9 Noninfective gastroenteritis and colitis, unspecified; H91.90 Unspecified hearing loss, unspecified ear; I44.0 Atrioventricular block, first degree; Z79.4 Long term (current) use of insulin; Z99.2 Dependence on renal dialysis; Z95.5 Presence of coronary angioplasty implant and graft; Z87.440 Personal history of urinary (tract) infections; Z85.828 Personal history of other malignant neoplasm of skin; Z86.73 Personal history of transient ischemic attack (TIA), and cerebral infarction without residual deficits; Y92.019 Unspecified place in single-family (private) house as the place of occurrence of the external cause
CPT/HCPCS: 36246; 36415; 36901; 36907; 71045; 75630; 75635; 75710; 80048; 80053; 82710; 82803; 82947; 82962; 83036; 83735; 84100; 84132; 84145; 84484; 85025; 85610; 85651; 85730; 86140; 87040-91; 87070; 87075; 87081; 87340; 88304; 88311; 90935; 93005; 93306; 93922; 94664; 96374; 96375; 97110; 97162; 97530; 99285-25

== ENCOUNTER 2018-11-01 07:02 | Inpatient (IN) | payer MEDICARE, OTHER ==
[2018-11-01] MEDS: SODIUM CHLORIDE 0.9% 1L BAG IV* (07:31)
[2018-11-01 08:02] LABS: ADD MAN DIFF? NO
[2018-11-01 08:08] LABS: ABNORMAL IP MESSAGE 1; BASOPHILS % 0.3 % (0.0-2.0); EOSINOPHILS % 0.1 % (0.0-7.0); HEMATOCRIT 33.6 % (37.0-47.0); HEMOGLOBIN 10.6 g/dl (12.0-16.0); LYMPHOCYTES # 0.4 10^3/ul (0.8-2.9); LYMPHOCYTES % 4.8 % (15.0-51.0); MEAN CORPUSCULAR HEMOGLOBIN 27.2 pg (29.0-33.0); MEAN CORPUSCULAR HGB CONC 31.5 g/dl (32.0-37.0); MEAN CORPUSCULAR VOLUME 86.2 fl (82.0-101.0); MEAN PLATELET VOLUME 10.1 fl (7.4-10.4); MONOCYTE # 0.4 10^3/ul (0.3-0.9); MONOCYTES % 4.6 % (0.0-11.0); NEUTROPHIL # 6.9 10^3/ul (1.6-7.5); NEUTROPHILS % 89.7 % (39.0-77.0); NUCLEATED RED BLOOD CELLS # 0.1 10^3/ul (0.0-0.0); NUCLEATED RED BLOOD CELLS% 1.6 /100WBC (0.0-0.0); PLATELET COUNT 210 10^3/UL (140-415); RED CELL DISTRIBUTION WIDTH 18.8 % (11.5-14.5)
[2018-11-01 08:08] LABS: WHITE BLOOD COUNT 7.7 10^3/ul (4.8-10.8)
[2018-11-01 08:09] LABS: POSITIVE DIFF @See below
[2018-11-01 08:24] LABS: ALANINE AMINOTRANSFERASE 36 IU/L (13-69); ALBUMIN 3.5 g/dl (3.3-4.9); ALBUMIN/GLOBULIN RATIO 1.29; ALKALINE PHOSPHATASE 203 IU/L (42-121); ANION GAP 20 (5-13); ASPARTATE AMINO TRANSFERASE 63 IU/L (15-46); BILIRUBIN,INDIRECT 0.5 mg/dl (0-1.1); BILIRUBIN,TOTAL 0.5 mg/dl (0.2-1.3); BLOOD UREA NITROGEN 27 mg/dl (7-20); CALCIUM 9.7 mg/dl (8.4-10.2); CARBON DIOXIDE 22 mmol/L (21-31); CHLORIDE 92 mmol/L (97-110); CREATININE 3.59 mg/dl (0.44-1.00); Estimated GFR 13 mL/min (>60); GLUCOSE 298 mg/dl (70-220); POTASSIUM 4.1 mmol/L (3.5-5.1); SODIUM 134 mmol/L (135-144); TOTAL PROTEIN 6.2 g/dl (6.1-8.1)
[2018-11-01 08:31] LABS: INR 1.96; PROTIME 22.4 Sec (11.9-14.9); PT RATIO 1.8
[2018-11-01 08:32] LABS: PARTIAL THROMBOPLASTIN TIME 39.5 Sec (23.0-35.0)
[2018-11-01] MEDS: PIPER-TAZO 3.375 GM IV (PMX) 100 ML IVPB (08:43)
[2018-11-01] MEDS ORDERED: ACETAMINOPHEN 325 MG TAB PO (09:30)
[2018-11-01] MEDS ORDERED: ONDANSETRON 4 MG INJ IV (09:30)
[2018-11-01] MEDS: CLINDAMYCIN 600 MG/D5W (PMX) 50 ML IVPB (09:51)
[2018-11-01] MEDS: LINEZOLID 600 MG/300 ML (PMX) 300 ML IVPB ×2 (10:53→22:02)
[2018-11-01] MEDS ORDERED: INSULIN ASPART SQ (13:30)
[2018-11-01] MEDS: CLOPIDOGREL 75 MG TAB PO (14:00)
[2018-11-01] MEDS ORDERED: PENDING SANTYL ORDER FOR WOUND CARE XX (14:30)
[2018-11-01] MEDS ORDERED: SIMVASTATIN 20MG XX (15:00)
[2018-11-01] MEDS: SOD CHLORIDE 0.9% 1,000 ML IV (16:00)
[2018-11-01] MEDS ORDERED: ACETAMINOPHEN 650 MG SUPP PR (16:00)
[2018-11-01 16:22] LABS: LACTIC ACID 2.4 mmol/L (0.5-2.0)
[2018-11-01] MEDS ORDERED: DEXTROSE 50% 50 ML SYRINGE IV (16:30)
[2018-11-01] MEDS: HYDRALAZINE 25 MG XX (16:30)
[2018-11-01] MEDS ORDERED: GLUCOSE GEL 15 GRAM TUBE PO ×2 (16:30)
[2018-11-01] MEDS: PIPER-TAZO 2.25 GM (PMX) 50 ML IVPB (16:33)
[2018-11-01] MEDS: DIPHENOXYLATE/ATROPINE TAB PO ×2 (16:56→20:58)
[2018-11-01] MEDS: CREON (24K-76K-120K) 1 CAP PO (18:00)
[2018-11-01] MEDS: CALCIUM ACETATE 667 MG CAP PO (18:00)
[2018-11-01] MEDS: INSULIN ASPART [NOVOLOG] 3 ML PEN SC ×2 (18:09→22:16)
[2018-11-01] MEDS: APIXABAN 5 MG TABLET PO (20:57)
[2018-11-01] MEDS: CHOLESTYRAMINE 4 GM PACKET PO (20:58)
[2018-11-01] MEDS: LOPERAMIDE 2 MG CAP PO (20:58)
[2018-11-01] MEDS ORDERED: ATORVASTATIN 10 MG TAB PO (21:00)
[2018-11-01] MEDS: ALBUTEROL/IPRATROPIUM (NEB) 3 ML AMP HHN (23:53)
[2018-11-01 23:59] LABS: Allen Test ACCEPTAB; Arterial Base Excess -9.9 mmol/L (-3.0-3); Arterial COHb 0.2 % (0.0-3.0); Arterial Fraction of Oxyhgb 98.5 % (93.0-99.0); Arterial HCO3 16.3 mmol/L (22.0-26.0); Arterial MetHb 0.3 % (0.0-1.5); Arterial pCO2 37.1 mmhg (35-45); MODE NASAL CANNULA; Site Left Radial
[2018-11-02] MEDS: HYDRALAZINE 25 MG XX ×3 (00:30→16:30)
[2018-11-02] MEDS: INSULIN ASPART [NOVOLOG] 3 ML PEN SC ×6 (02:33→21:10)
[2018-11-02 05:51] LABS: ADD MAN DIFF? NO
[2018-11-02 06:06] LABS: WHITE BLOOD COUNT 7.6 10^3/ul (4.8-10.8)
[2018-11-02 06:06] LABS: BASOPHIL # 0.1 10^3/ul (0.0-0.1); BASOPHILS % 0.7 % (0.0-2.0); EOSINOPHILS % 0.4 % (0.0-7.0); HEMATOCRIT 32.5 % (37.0-47.0); HEMOGLOBIN 10.2 g/dl (12.0-16.0); LYMPHOCYTES % 12.8 % (15.0-51.0); MEAN CORPUSCULAR HEMOGLOBIN 26.8 pg (29.0-33.0); MEAN CORPUSCULAR HGB CONC 31.4 g/dl (32.0-37.0); MEAN CORPUSCULAR VOLUME 85.3 fl (82.0-101.0); MEAN PLATELET VOLUME 10.4 fl (7.4-10.4); MONOCYTE # 0.8 10^3/ul (0.3-0.9); NEUTROPHIL # 5.8 10^3/ul (1.6-7.5); NEUTROPHILS % 75.7 % (39.0-77.0); NUCLEATED RED BLOOD CELLS # 0.2 10^3/ul (0.0-0.0); PLATELET COUNT 228 10^3/UL (140-415); RED BLOOD COUNT 3.81 10^6/ul (4.20-5.40); RED CELL DISTRIBUTION WIDTH 18.8 % (11.5-14.5)
[2018-11-02 06:31] LABS: ALANINE AMINOTRANSFERASE 43 IU/L (13-69); ALBUMIN 3.4 g/dl (3.3-4.9); ALKALINE PHOSPHATASE 160 IU/L (42-121); ANION GAP 17 (5-13); ASPARTATE AMINO TRANSFERASE 67 IU/L (15-46); BILIRUBIN,INDIRECT 0.2 mg/dl (0-1.1); BILIRUBIN,TOTAL 0.2 mg/dl (0.2-1.3); BLOOD UREA NITROGEN 41 mg/dl (7-20); CALCIUM 9.3 mg/dl (8.4-10.2); CARBON DIOXIDE 25 mmol/L (21-31); CHLORIDE 92 mmol/L (97-110); CREATININE 4.35 mg/dl (0.44-1.00); Estimated GFR 10 mL/min (>60); GLUCOSE 320 mg/dl (70-220); POTASSIUM 4.1 mmol/L (3.5-5.1); SODIUM 134 mmol/L (135-144)
[2018-11-02] MEDS: PANTOPRAZOLE (EC) 40 MG TAB PO (07:00)
[2018-11-02] MEDS: LEVOTHYROXINE 125 MCG TAB PO (07:00)
[2018-11-02] MEDS: CALCIUM ACETATE 667 MG CAP PO ×3 (08:00→17:08)
[2018-11-02] MEDS: CREON (24K-76K-120K) 1 CAP PO ×3 (08:00→17:08)
[2018-11-02] MEDS: ISOSORBIDE MONONITRATE(SR)60 MG TAB PO (08:38)
[2018-11-02] MEDS: APIXABAN 5 MG TABLET PO ×2 (08:38→20:34)
[2018-11-02] MEDS: LOPERAMIDE 2 MG CAP PO ×2 (08:39→20:35)
[2018-11-02] MEDS: CHOLESTYRAMINE 4 GM PACKET PO ×3 (08:39→20:35)
[2018-11-02] MEDS: DIPHENOXYLATE/ATROPINE TAB PO ×4 (08:39→20:35)
[2018-11-02] MEDS: CLOPIDOGREL 75 MG TAB PO (08:39)
[2018-11-02] MEDS: MULTIVIT/CA CARB/B CMPLX/FA TAB PO (08:40)
[2018-11-02] MEDS: LINEZOLID 600 MG/300 ML (PMX) 300 ML IVPB ×2 (10:15→20:36)
[2018-11-02 11:19] LABS: PROCALCITONIN 1.77 ng/mL (0.00-0.10)
[2018-11-02] MEDS: MEROPENEM 500MG/50 ML (PMX) 50 ML IVPB (12:36)
[2018-11-02 13:41] LABS: CREATINE KINASE 111 IU/L (23-200)
[2018-11-02 13:55] LABS: CK INDEX 4.2; CK-MB 4.68 ng/ml (0.0-2.4); TROPONIN-I 0.299 ng/ml (0.000-0.120)
[2018-11-03] MEDS: HYDRALAZINE 25 MG XX ×3 (00:30→11:59)
[2018-11-03] MEDS: INSULIN ASPART [NOVOLOG] 3 ML PEN SC ×3 (01:39→08:48)
[2018-11-03 06:19] LABS: ADD MAN DIFF? NO
[2018-11-03 06:25] LABS: BASOPHIL # 0.1 10^3/ul (0.0-0.1); BASOPHILS % 0.7 % (0.0-2.0); EOSINOPHILS # 0.1 10^3/ul (0.0-0.5); EOSINOPHILS % 0.9 % (0.0-7.0); HEMATOCRIT 35.8 % (37.0-47.0); HEMOGLOBIN 11.1 g/dl (12.0-16.0); LYMPHOCYTES # 0.8 10^3/ul (0.8-2.9); LYMPHOCYTES % 10.1 % (15.0-51.0); MEAN CORPUSCULAR HEMOGLOBIN 26.6 pg (29.0-33.0); MEAN CORPUSCULAR VOLUME 85.6 fl (82.0-101.0); MEAN PLATELET VOLUME 9.6 fl (7.4-10.4); MONOCYTE # 0.6 10^3/ul (0.3-0.9); MONOCYTES % 7.4 % (0.0-11.0); NEUTROPHIL # 6.5 10^3/ul (1.6-7.5); NEUTROPHILS % 80.3 % (39.0-77.0); NUCLEATED RED BLOOD CELLS # 0.1 10^3/ul (0.0-0.0); NUCLEATED RED BLOOD CELLS% 0.9 /100WBC (0.0-0.0); PLATELET COUNT 210 10^3/UL (140-415); RED BLOOD COUNT 4.18 10^6/ul (4.20-5.40); RED CELL DISTRIBUTION WIDTH 19.9 % (11.5-14.5)
[2018-11-03 06:25] LABS: WHITE BLOOD COUNT 8.1 10^3/ul (4.8-10.8)
[2018-11-03 06:49] LABS: CREATINE KINASE 133 IU/L (23-200)
[2018-11-03 06:55] LABS: CK INDEX 4.8; CK-MB 6.45 ng/ml (0.0-2.4)
[2018-11-03] MEDS: LEVOTHYROXINE 125 MCG TAB PO (07:00)
[2018-11-03] MEDS: PANTOPRAZOLE (EC) 40 MG TAB PO (07:00)
[2018-11-03 07:03] LABS: TROPONIN-I 0.369 ng/ml (0.000-0.120)
[2018-11-03 07:42] LABS: ANION GAP 18 (5-13); BLOOD UREA NITROGEN 21 mg/dl (7-20); CALCIUM 9.8 mg/dl (8.4-10.2); CARBON DIOXIDE 23 mmol/L (21-31); CHLORIDE 96 mmol/L (97-110); Estimated GFR 15 mL/min (>60); GLUCOSE 204 mg/dl (70-220); POTASSIUM 3.9 mmol/L (3.5-5.1); SODIUM 137 mmol/L (135-144)
[2018-11-03] MEDS: CREON (24K-76K-120K) 1 CAP PO ×3 (08:00→17:15)
[2018-11-03] MEDS: CALCIUM ACETATE 667 MG CAP PO ×3 (08:00→17:15)
[2018-11-03] MEDS: ISOSORBIDE MONONITRATE(SR)60 MG TAB PO (08:03)
[2018-11-03] MEDS: APIXABAN 5 MG TABLET PO ×2 (08:03→21:00)
[2018-11-03] MEDS: MULTIVIT/CA CARB/B CMPLX/FA TAB PO (08:04)
[2018-11-03] MEDS: LOPERAMIDE 2 MG CAP PO ×2 (08:04→21:18)
[2018-11-03] MEDS: CLOPIDOGREL 75 MG TAB PO (08:04)
[2018-11-03] MEDS: DIPHENOXYLATE/ATROPINE TAB PO ×4 (08:04→21:19)
[2018-11-03] MEDS: CHOLESTYRAMINE 4 GM PACKET PO ×3 (08:04→21:18)
[2018-11-03 08:11] LABS: PROCALCITONIN 0.25 ng/mL (0.00-0.10)
[2018-11-03] MEDS: MEROPENEM 500MG/50 ML (PMX) 50 ML IVPB (08:54)
[2018-11-03] MEDS: LINEZOLID 600 MG/300 ML (PMX) 300 ML IVPB (10:11)
[2018-11-03] MEDS: DAKINS 0.0125%(1/40) 473 ML SOLUTION TP (10:11)
[2018-11-03] MEDS: HYDROCODONE/APAP (5/325) TAB PO ×2 (12:49→21:25)
[2018-11-03] MEDS: Insulin NOVOLOG SS MILD Algorithm (SS with meals and bedtime) SC ×2 (17:15→21:00)
[2018-11-03] MEDS ORDERED: INSULIN ASPART [NOVOLOG] 3 ML PEN SC (17:30)
[2018-11-03] MEDS: BALSAM PERU/CASTOR OIL 60 GM TUBE TOP (21:18)
[2018-11-03] MEDS: NYSTATIN 30 GM POWDER BTL TOP (21:18)
[2018-11-04] MEDS: HYDROCODONE/APAP (5/325) TAB PO ×2 (02:06→22:28)
[2018-11-04 05:54] LABS: ADD MAN DIFF? NO
[2018-11-04 06:04] LABS: BASOPHIL # 0.1 10^3/ul (0.0-0.1); EOSINOPHILS # 0.2 10^3/ul (0.0-0.5); HEMATOCRIT 36.5 % (37.0-47.0); HEMOGLOBIN 11.5 g/dl (12.0-16.0); LYMPHOCYTES # 0.9 10^3/ul (0.8-2.9); LYMPHOCYTES % 14.8 % (15.0-51.0); MEAN CORPUSCULAR HEMOGLOBIN 27.2 pg (29.0-33.0); MEAN CORPUSCULAR HGB CONC 31.5 g/dl (32.0-37.0); MEAN CORPUSCULAR VOLUME 86.3 fl (82.0-101.0); MEAN PLATELET VOLUME 9.9 fl (7.4-10.4); MONOCYTE # 0.5 10^3/ul (0.3-0.9); NEUTROPHIL # 4.3 10^3/ul (1.6-7.5); NEUTROPHILS % 71.9 % (39.0-77.0); NUCLEATED RED BLOOD CELLS # 0.1 10^3/ul (0.0-0.0); NUCLEATED RED BLOOD CELLS% 0.8 /100WBC (0.0-0.0); PLATELET COUNT 203 10^3/UL (140-415); RED BLOOD COUNT 4.23 10^6/ul (4.20-5.40); RED CELL DISTRIBUTION WIDTH 20.1 % (11.5-14.5)
[2018-11-04] MEDS: LEVOTHYROXINE 100 MCG TAB PO (06:19)
[2018-11-04] MEDS: PANTOPRAZOLE (EC) 40 MG TAB PO (06:19)
[2018-11-04 06:50] LABS: ANION GAP 13 (5-13); BLOOD UREA NITROGEN 27 mg/dl (7-20); CARBON DIOXIDE 25 mmol/L (21-31); CHLORIDE 95 mmol/L (97-110); CREATININE 4.11 mg/dl (0.44-1.00); Estimated GFR 11 mL/min (>60); GLUCOSE 192 mg/dl (70-220); SODIUM 133 mmol/L (135-144)
[2018-11-04] MEDS: Insulin NOVOLOG SS MILD Algorithm (SS with meals and bedtime) SC ×4 (07:00→20:18)
[2018-11-04 07:04] LABS: PROCALCITONIN 1.52 ng/mL (0.00-0.10)
[2018-11-04] MEDS: CHOLESTYRAMINE 4 GM PACKET PO ×3 (09:00→20:13)
[2018-11-04] MEDS: MEROPENEM 500MG/50 ML (PMX) 50 ML IVPB (09:42)
[2018-11-04] MEDS: MULTIVIT/CA CARB/B CMPLX/FA TAB PO (09:43)
[2018-11-04] MEDS: CREON (24K-76K-120K) 1 CAP PO ×3 (09:43→17:37)
[2018-11-04] MEDS: CALCIUM ACETATE 667 MG CAP PO ×3 (09:43→17:37)
[2018-11-04] MEDS: CLOPIDOGREL 75 MG TAB PO (09:44)
[2018-11-04] MEDS: LOPERAMIDE 2 MG CAP PO ×2 (09:44→20:13)
[2018-11-04] MEDS: DIPHENOXYLATE/ATROPINE TAB PO ×4 (10:31→21:00)
[2018-11-04] MEDS: NYSTATIN 30 GM POWDER BTL TOP ×2 (10:33→20:14)
[2018-11-04] MEDS: BALSAM PERU/CASTOR OIL 60 GM TUBE TOP ×2 (10:33→20:14)
[2018-11-04] MEDS: APIXABAN 5 MG TABLET PO ×2 (10:35→20:13)
[2018-11-04] MEDS: DAKINS 0.0125%(1/40) 473 ML SOLUTION TP (10:36)
[2018-11-04] MEDS: ISOSORBIDE MONONITRATE(SR)60 MG TAB PO (14:02)
[2018-11-04 14:24] LABS: CREATINE KINASE 46 IU/L (23-200)
[2018-11-04 14:37] LABS: CK INDEX 7.8; CK-MB 3.61 ng/ml (0.0-2.4)
[2018-11-04 14:42] LABS: TROPONIN-I 0.206 ng/ml (0.000-0.120)
[2018-11-04] MEDS: ISOSORBIDE DINITRATE 10 MG TAB PO (20:09)
[2018-11-04] MEDS: METOPROLOL (XL) 25 MG TAB PO (20:23)
[2018-11-05] MEDS: ALBUTEROL/IPRATROPIUM (NEB) 3 ML AMP HHN (01:39)
[2018-11-05] MEDS: LEVOTHYROXINE 100 MCG TAB PO (06:32)
[2018-11-05] MEDS: PANTOPRAZOLE (EC) 40 MG TAB PO (06:32)
[2018-11-05] MEDS: CHOLESTYRAMINE 4 GM PACKET PO ×3 (08:09→21:17)
[2018-11-05] MEDS: LOPERAMIDE 2 MG CAP PO ×2 (08:09→21:18)
[2018-11-05] MEDS: CLOPIDOGREL 75 MG TAB PO (08:09)
[2018-11-05] MEDS: CREON (24K-76K-120K) 1 CAP PO ×3 (08:09→17:57)
[2018-11-05] MEDS: MULTIVIT/CA CARB/B CMPLX/FA TAB PO (08:09)
[2018-11-05] MEDS: MEROPENEM 500MG/50 ML (PMX) 50 ML IVPB (08:10)
[2018-11-05] MEDS: CALCIUM ACETATE 667 MG CAP PO ×3 (08:10→17:58)
[2018-11-05] MEDS: APIXABAN 5 MG TABLET PO ×2 (08:10→21:18)
[2018-11-05] MEDS: BALSAM PERU/CASTOR OIL 60 GM TUBE TOP ×2 (08:11→21:20)
[2018-11-05] MEDS: NYSTATIN 30 GM POWDER BTL TOP ×2 (08:11→21:20)
[2018-11-05] MEDS: Insulin NOVOLOG SS MILD Algorithm (SS with meals and bedtime) SC ×4 (08:17→21:23)
[2018-11-05] MEDS: DIPHENOXYLATE/ATROPINE TAB PO ×4 (08:24→21:17)
[2018-11-05] MEDS: ISOSORBIDE DINITRATE 10 MG TAB PO (08:24)
[2018-11-05] MEDS: METOPROLOL (XL) 25 MG TAB PO ×2 (08:25→21:00)
[2018-11-05] MEDS: DAKINS 0.0125%(1/40) 473 ML SOLUTION TP (08:26)
[2018-11-05 13:12] LABS: HEPATITIS B SURFACE ANTIGEN NEGATIVE (NEGATIVE)
[2018-11-05] MEDS: ISOSORBIDE DINITRATE 5 MG TAB PO (21:00)
[2018-11-05] MEDS: HYDROCODONE/APAP (5/325) TAB PO (21:18)
[2018-11-06] MEDS: HYDROCODONE/APAP (5/325) TAB PO ×2 (02:41→23:26)
[2018-11-06] MEDS: PANTOPRAZOLE (EC) 40 MG TAB PO (06:00)
[2018-11-06] MEDS: LEVOTHYROXINE 100 MCG TAB PO (06:00)
[2018-11-06] MEDS: Insulin NOVOLOG SS MILD Algorithm (SS with meals and bedtime) SC ×4 (06:03→21:54)
[2018-11-06] MEDS: DAKINS 0.0125%(1/40) 473 ML SOLUTION TP (09:00)
[2018-11-06] MEDS: METOPROLOL (XL) 25 MG TAB PO ×2 (09:00→21:38)
[2018-11-06] MEDS: ISOSORBIDE DINITRATE 5 MG TAB PO ×3 (09:00→21:00)
[2018-11-06] MEDS: CALCIUM ACETATE 667 MG CAP PO ×3 (09:03→18:00)
[2018-11-06] MEDS: CHOLESTYRAMINE 4 GM PACKET PO ×3 (09:03→21:40)
[2018-11-06] MEDS: APIXABAN 5 MG TABLET PO ×2 (09:03→21:40)
[2018-11-06] MEDS: CREON (24K-76K-120K) 1 CAP PO ×3 (09:03→18:00)
[2018-11-06] MEDS: CLOPIDOGREL 75 MG TAB PO (09:04)
[2018-11-06] MEDS: MEROPENEM 500MG/50 ML (PMX) 50 ML IVPB (09:05)
[2018-11-06] MEDS: LOPERAMIDE 2 MG CAP PO ×2 (09:05→21:38)
[2018-11-06] MEDS: MULTIVIT/CA CARB/B CMPLX/FA TAB PO (09:05)
[2018-11-06] MEDS: BALSAM PERU/CASTOR OIL 60 GM TUBE TOP ×2 (09:06→21:36)
[2018-11-06] MEDS: NYSTATIN 30 GM POWDER BTL TOP ×2 (09:06→21:36)
[2018-11-06] MEDS: DIPHENOXYLATE/ATROPINE TAB PO ×4 (09:08→21:37)
[2018-11-06 10:42] LABS: PROCALCITONIN 1.13 ng/mL (0.00-0.10)
[2018-11-07] MEDS: LEVOTHYROXINE 100 MCG TAB PO (06:28)
[2018-11-07] MEDS: PANTOPRAZOLE (EC) 40 MG TAB PO (06:28)
[2018-11-07 06:32] LABS: ADD MAN DIFF? NO
[2018-11-07] MEDS: Insulin NOVOLOG SS MILD Algorithm (SS with meals and bedtime) SC ×4 (06:44→21:16)
[2018-11-07 06:46] LABS: WHITE BLOOD COUNT 5.3 10^3/ul (4.8-10.8)
[2018-11-07 06:46] LABS: BASOPHIL # 0.1 10^3/ul (0.0-0.1); BASOPHILS % 1.5 % (0.0-2.0); EOSINOPHILS # 0.2 10^3/ul (0.0-0.5); EOSINOPHILS % 3.2 % (0.0-7.0); HEMATOCRIT 37.3 % (37.0-47.0); HEMOGLOBIN 11.5 g/dl (12.0-16.0); LYMPHOCYTES # 0.9 10^3/ul (0.8-2.9); LYMPHOCYTES % 16.7 % (15.0-51.0); MEAN CORPUSCULAR HEMOGLOBIN 27.1 pg (29.0-33.0); MEAN CORPUSCULAR HGB CONC 30.8 g/dl (32.0-37.0); MEAN PLATELET VOLUME 9.7 fl (7.4-10.4); MONOCYTE # 0.7 10^3/ul (0.3-0.9); MONOCYTES % 12.8 % (0.0-11.0); NEUTROPHIL # 3.5 10^3/ul (1.6-7.5); NEUTROPHILS % 65.4 % (39.0-77.0); NUCLEATED RED BLOOD CELLS% 0.4 /100WBC (0.0-0.0); PLATELET COUNT 128 10^3/UL (140-415); RED BLOOD COUNT 4.24 10^6/ul (4.20-5.40); RED CELL DISTRIBUTION WIDTH 20.1 % (11.5-14.5)
[2018-11-07 07:23] LABS: ALANINE AMINOTRANSFERASE 31 IU/L (13-69); ALBUMIN/GLOBULIN RATIO 1.03; ALKALINE PHOSPHATASE 145 IU/L (42-121); ANION GAP 13 (5-13); ASPARTATE AMINO TRANSFERASE 33 IU/L (15-46); BILIRUBIN,INDIRECT 0.3 mg/dl (0-1.1); BILIRUBIN,TOTAL 0.3 mg/dl (0.2-1.3); BLOOD UREA NITROGEN 28 mg/dl (7-20); CALCIUM 9.7 mg/dl (8.4-10.2); CARBON DIOXIDE 24 mmol/L (21-31); CHLORIDE 95 mmol/L (97-110); CREATININE 4.52 mg/dl (0.44-1.00); Estimated GFR 10 mL/min (>60); GLUCOSE 217 mg/dl (70-220); SODIUM 132 mmol/L (135-144); TOTAL PROTEIN 5.9 g/dl (6.1-8.1)
[2018-11-07] MEDS: CREON (24K-76K-120K) 1 CAP PO ×3 (08:08→17:20)
[2018-11-07] MEDS: CALCIUM ACETATE 667 MG CAP PO ×3 (08:08→17:20)
[2018-11-07] MEDS: LOPERAMIDE 2 MG CAP PO ×2 (08:09→21:12)
[2018-11-07] MEDS: APIXABAN 5 MG TABLET PO ×2 (08:09→21:10)
[2018-11-07] MEDS: MULTIVIT/CA CARB/B CMPLX/FA TAB PO (08:09)
[2018-11-07] MEDS: CLOPIDOGREL 75 MG TAB PO (08:09)
[2018-11-07] MEDS: MEROPENEM 500MG/50 ML (PMX) 50 ML IVPB (08:10)
[2018-11-07] MEDS: CHOLESTYRAMINE 4 GM PACKET PO ×3 (08:10→21:00)
[2018-11-07] MEDS: NYSTATIN 30 GM POWDER BTL TOP ×2 (08:16→21:13)
[2018-11-07] MEDS: BALSAM PERU/CASTOR OIL 60 GM TUBE TOP ×2 (08:17→21:13)
[2018-11-07] MEDS: DAKINS 0.0125%(1/40) 473 ML SOLUTION TP (08:17)
[2018-11-07] MEDS: DIPHENOXYLATE/ATROPINE TAB PO ×4 (08:18→21:13)
[2018-11-07] MEDS: ISOSORBIDE DINITRATE 5 MG TAB PO ×3 (08:18→21:12)
[2018-11-07] MEDS: METOPROLOL (XL) 25 MG TAB PO ×2 (08:19→21:11)
[2018-11-07] MEDS: HYDROCODONE/APAP (5/325) TAB PO ×2 (10:04→22:12)
[2018-11-07] MEDS ORDERED: LIDOCAINE 4% CR TOP (16:30)
[2018-11-08] MEDS: HYDROCODONE/APAP (5/325) TAB PO (02:32)
[2018-11-08 06:19] LABS: ADD MAN DIFF? NO
[2018-11-08 06:33] LABS: WHITE BLOOD COUNT 5.1 10^3/ul (4.8-10.8)
[2018-11-08 06:33] LABS: BASOPHIL # 0.1 10^3/ul (0.0-0.1); BASOPHILS % 1.2 % (0.0-2.0); EOSINOPHILS # 0.1 10^3/ul (0.0-0.5); HEMATOCRIT 35.3 % (37.0-47.0); HEMOGLOBIN 10.9 g/dl (12.0-16.0); LYMPHOCYTES # 0.8 10^3/ul (0.8-2.9); LYMPHOCYTES % 16.1 % (15.0-51.0); MEAN CORPUSCULAR HEMOGLOBIN 26.8 pg (29.0-33.0); MEAN CORPUSCULAR HGB CONC 30.9 g/dl (32.0-37.0); MEAN CORPUSCULAR VOLUME 86.7 fl (82.0-101.0); MEAN PLATELET VOLUME 9.1 fl (7.4-10.4); MONOCYTE # 0.6 10^3/ul (0.3-0.9); MONOCYTES % 10.8 % (0.0-11.0); NEUTROPHIL # 3.6 10^3/ul (1.6-7.5); NEUTROPHILS % 69.5 % (39.0-77.0); PLATELET COUNT 110 10^3/UL (140-415); RED BLOOD COUNT 4.07 10^6/ul (4.20-5.40); RED CELL DISTRIBUTION WIDTH 19.9 % (11.5-14.5)
[2018-11-08 07:00] LABS: ANION GAP 18 (5-13); BLOOD UREA NITROGEN 36 mg/dl (7-20); CALCIUM 9.4 mg/dl (8.4-10.2); CARBON DIOXIDE 18 mmol/L (21-31); CHLORIDE 94 mmol/L (97-110); CREATININE 5.67 mg/dl (0.44-1.00); Estimated GFR 8 mL/min (>60); POTASSIUM 5.2 mmol/L (3.5-5.1); SODIUM 130 mmol/L (135-144)
[2018-11-08] MEDS: Insulin NOVOLOG SS MILD Algorithm (SS with meals and bedtime) SC ×4 (07:00→21:00)
[2018-11-08 07:11] LABS: GLUCOSE 405 mg/dl (70-220)
[2018-11-08] MEDS: ACCU-CHEK XX ×2 (08:00→11:30)
[2018-11-08] MEDS: MULTIVIT/CA CARB/B CMPLX/FA TAB PO (08:49)
[2018-11-08] MEDS: CLOPIDOGREL 75 MG TAB PO (08:50)
[2018-11-08] MEDS: ISOSORBIDE DINITRATE 5 MG TAB PO ×2 (08:50→12:23)
[2018-11-08] MEDS: CALCIUM ACETATE 667 MG CAP PO ×3 (08:50→17:13)
[2018-11-08] MEDS: CREON (24K-76K-120K) 1 CAP PO ×3 (08:50→17:13)
[2018-11-08] MEDS: APIXABAN 5 MG TABLET PO ×2 (08:51→21:58)
[2018-11-08] MEDS: LEVOTHYROXINE 100 MCG TAB PO (08:51)
[2018-11-08] MEDS: METOPROLOL (XL) 25 MG TAB PO (08:52)
[2018-11-08] MEDS: PANTOPRAZOLE (EC) 40 MG TAB PO (08:52)
[2018-11-08] MEDS: LOPERAMIDE 2 MG CAP PO ×2 (08:52→21:59)
[2018-11-08] MEDS: CHOLESTYRAMINE 4 GM PACKET PO ×3 (08:53→21:59)
[2018-11-08] MEDS: MEROPENEM 500MG/50 ML (PMX) 50 ML IVPB (08:53)
[2018-11-08] MEDS: DIPHENOXYLATE/ATROPINE TAB PO ×4 (09:00→21:58)
[2018-11-08 09:31] LABS: PROCALCITONIN 0.91 ng/mL (0.00-0.10)
[2018-11-08] MEDS: INSULIN ASPART [NOVOLOG] 3 ML PEN SC ×2 (09:53→12:23)
[2018-11-08] MEDS: INSULIN GLARGINE [LANTus] (100 UNITS/ML) SYG SC (09:53)
[2018-11-08] MEDS: BALSAM PERU/CASTOR OIL 60 GM TUBE TOP ×2 (10:02→21:57)
[2018-11-08] MEDS: NYSTATIN 30 GM POWDER BTL TOP ×2 (10:02→21:58)
[2018-11-08] MEDS: DAKINS 0.0125%(1/40) 473 ML SOLUTION TP (10:03)
[2018-11-08] MEDS: MIDODRINE 5 MG TAB PO (12:09)
[2018-11-08] MEDS: ALBUMIN HUMAN 25% 100 ML IV (12:10)
[2018-11-08] MEDS: SOD CHLORIDE 0.9% 250 ML IV (12:11)
[2018-11-08] MEDS: traMADol 50 MG TAB PO (22:00)
[2018-11-08 23:12] LABS: ANION GAP 2 (5-13); BLOOD UREA NITROGEN 44 mg/dl (7-20); CALCIUM 9.9 mg/dl (8.4-10.2); CARBON DIOXIDE 35 mmol/L (21-31); CHLORIDE 93 mmol/L (97-110); CREATININE 6.26 mg/dl (0.44-1.00); Estimated GFR 7 mL/min (>60); GLUCOSE 174 mg/dl (70-220); POTASSIUM 4.9 mmol/L (3.5-5.1); SODIUM 130 mmol/L (135-144)
[2018-11-09] MEDS: INSULIN GLARGINE [LANTus] (100 UNITS/ML) SYG SC ×2 (01:42→20:00)
[2018-11-09] MEDS: LEVOTHYROXINE 100 MCG TAB PO (06:18)
[2018-11-09] MEDS: PANTOPRAZOLE (EC) 40 MG TAB PO (06:18)
[2018-11-09] MEDS: Insulin NOVOLOG SS MILD Algorithm (SS with meals and bedtime) SC ×4 (06:21→21:00)
[2018-11-09] MEDS: MEROPENEM 500MG/50 ML (PMX) 50 ML IVPB ×2 (08:42→12:45)
[2018-11-09] MEDS: CREON (24K-76K-120K) 1 CAP PO ×3 (08:43→17:39)
[2018-11-09] MEDS: CHOLESTYRAMINE 4 GM PACKET PO ×3 (08:48→20:55)
[2018-11-09] MEDS: MULTIVIT/CA CARB/B CMPLX/FA TAB PO (08:48)
[2018-11-09] MEDS: APIXABAN 5 MG TABLET PO ×2 (08:48→20:48)
[2018-11-09] MEDS: CALCIUM ACETATE 667 MG CAP PO ×3 (08:48→17:40)
[2018-11-09] MEDS: CLOPIDOGREL 75 MG TAB PO (08:48)
[2018-11-09] MEDS: LOPERAMIDE 2 MG CAP PO ×2 (08:48→20:48)
[2018-11-09] MEDS: NYSTATIN 30 GM POWDER BTL TOP ×2 (08:49→21:00)
[2018-11-09] MEDS: DAKINS 0.0125%(1/40) 473 ML SOLUTION TP (08:50)
[2018-11-09] MEDS: BALSAM PERU/CASTOR OIL 60 GM TUBE TOP ×2 (08:50→21:00)
[2018-11-09] MEDS: DIPHENOXYLATE/ATROPINE TAB PO ×4 (08:58→21:00)
[2018-11-09] MEDS: LIDOCAINE 1% (MDV) 20 ML INJ INJ (10:03)
[2018-11-09] MEDS: ALBUMIN HUMAN 25% 100 ML IV (11:12)
[2018-11-10] MEDS: traMADol 50 MG TAB PO (02:48)
[2018-11-10] MEDS: PANTOPRAZOLE (EC) 40 MG TAB PO ×2 (05:47→08:03)
[2018-11-10] MEDS: LEVOTHYROXINE 100 MCG TAB PO ×2 (05:48→08:03)
[2018-11-10] MEDS: Insulin NOVOLOG SS MILD Algorithm (SS with meals and bedtime) SC ×4 (08:02→21:00)
[2018-11-10] MEDS: MULTIVIT/CA CARB/B CMPLX/FA TAB PO (08:03)
[2018-11-10] MEDS: CREON (24K-76K-120K) 1 CAP PO ×3 (08:03→17:28)
[2018-11-10] MEDS: CALCIUM ACETATE 667 MG CAP PO ×3 (08:03→17:29)
[2018-11-10] MEDS: CHOLESTYRAMINE 4 GM PACKET PO ×3 (08:03→21:00)
[2018-11-10] MEDS: APIXABAN 5 MG TABLET PO ×2 (08:03→20:36)
[2018-11-10] MEDS: CLOPIDOGREL 75 MG TAB PO (08:03)
[2018-11-10] MEDS: DAKINS 0.0125%(1/40) 473 ML SOLUTION TP (08:04)
[2018-11-10] MEDS: BALSAM PERU/CASTOR OIL 60 GM TUBE TOP ×2 (08:04→20:39)
[2018-11-10] MEDS: NYSTATIN 30 GM POWDER BTL TOP ×2 (08:04→20:39)
[2018-11-10] MEDS: DIPHENOXYLATE/ATROPINE TAB PO ×4 (09:00→20:37)
[2018-11-10] MEDS: LOPERAMIDE 2 MG CAP PO ×2 (09:00→20:36)
[2018-11-10] MEDS: METOPROLOL (XL) 25 MG TAB PO (20:37)
[2018-11-10] MEDS: ZOLPIDEM 5 MG TAB PO (21:40)
[2018-11-10] MEDS: INSULIN GLARGINE [LANTus] (100 UNITS/ML) SYG SC (21:42)
[2018-11-11] MEDS: Insulin NOVOLOG SS MILD Algorithm (SS with meals and bedtime) SC ×4 (07:30→21:00)
[2018-11-11] MEDS: CREON (24K-76K-120K) 1 CAP PO ×3 (08:09→18:34)
[2018-11-11] MEDS: CLOPIDOGREL 75 MG TAB PO (08:09)
[2018-11-11] MEDS: LOPERAMIDE 2 MG CAP PO ×2 (08:09→21:02)
[2018-11-11] MEDS: MULTIVIT/CA CARB/B CMPLX/FA TAB PO (08:09)
[2018-11-11] MEDS: APIXABAN 5 MG TABLET PO ×2 (08:09→21:02)
[2018-11-11] MEDS: DIPHENOXYLATE/ATROPINE TAB PO ×4 (08:09→21:02)
[2018-11-11] MEDS: CHOLESTYRAMINE 4 GM PACKET PO ×3 (08:10→21:02)
[2018-11-11] MEDS: CALCIUM ACETATE 667 MG CAP PO ×3 (08:10→17:17)
[2018-11-11] MEDS: PANTOPRAZOLE (EC) 40 MG TAB PO (08:10)
[2018-11-11] MEDS: METOPROLOL (XL) 25 MG TAB PO (08:18)
[2018-11-11] MEDS: NYSTATIN 30 GM POWDER BTL TOP ×2 (08:19→21:10)
[2018-11-11] MEDS: BALSAM PERU/CASTOR OIL 60 GM TUBE TOP ×2 (08:19→21:10)
[2018-11-11] MEDS: DAKINS 0.0125%(1/40) 473 ML SOLUTION TP (08:19)
[2018-11-11] MEDS: HYDROCODONE/APAP (10/325) TAB PO ×2 (08:56→21:02)
[2018-11-11] MEDS: LIDOCAINE 1% (MDV) 20 ML INJ INJ (09:13)
[2018-11-11] MEDS: ALBUMIN HUMAN 25% 100 ML IV ×2 (10:08→11:31)
[2018-11-11] MEDS: INSULIN GLARGINE [LANTus] (100 UNITS/ML) SYG SC (21:09)
[2018-11-12] MEDS: ZOLPIDEM 5 MG TAB PO (01:00)
[2018-11-12] MEDS: LEVOTHYROXINE 100 MCG TAB PO (05:31)
[2018-11-12] MEDS: PANTOPRAZOLE (EC) 40 MG TAB PO (09:10)
[2018-11-12] MEDS: Insulin NOVOLOG SS MILD Algorithm (SS with meals and bedtime) SC ×4 (09:11→20:32)
[2018-11-12] MEDS: CREON (24K-76K-120K) 1 CAP PO ×4 (09:11→17:35)
[2018-11-12] MEDS: CALCIUM ACETATE 667 MG CAP PO ×3 (09:12→17:35)
[2018-11-12] MEDS: APIXABAN 5 MG TABLET PO ×2 (09:14→20:34)
[2018-11-12] MEDS: DIPHENOXYLATE/ATROPINE TAB PO ×4 (09:17→20:34)
[2018-11-12] MEDS: CLOPIDOGREL 75 MG TAB PO (09:17)
[2018-11-12] MEDS: LOPERAMIDE 2 MG CAP PO ×2 (09:17→20:35)
[2018-11-12] MEDS: MULTIVIT/CA CARB/B CMPLX/FA TAB PO (09:18)
[2018-11-12] MEDS: CHOLESTYRAMINE 4 GM PACKET PO ×4 (09:18→20:33)
[2018-11-12] MEDS: METOPROLOL (XL) 25 MG TAB PO (09:22)
[2018-11-12] MEDS: DAKINS 0.0125%(1/40) 473 ML SOLUTION TP (09:23)
[2018-11-12] MEDS: NYSTATIN 30 GM POWDER BTL TOP ×2 (09:23→20:23)
[2018-11-12] MEDS: BALSAM PERU/CASTOR OIL 60 GM TUBE TOP ×2 (09:23→20:22)
[2018-11-12] MEDS: HYDROCODONE/APAP (10/325) TAB PO ×2 (10:43→22:14)
[2018-11-12] MEDS: INSULIN GLARGINE [LANTus] (100 UNITS/ML) SYG SC (20:37)
[2018-11-13] MEDS ORDERED: ZOLPIDEM 5 MG TAB (01:03)
[2018-11-13] MEDS: ZOLPIDEM 5 MG TAB PO ×2 (01:19→22:20)
[2018-11-13] MEDS: LEVOTHYROXINE 100 MCG TAB PO (07:00)
[2018-11-13] MEDS: PANTOPRAZOLE (EC) 40 MG TAB PO (07:00)
[2018-11-13] MEDS: Insulin NOVOLOG SS MILD Algorithm (SS with meals and bedtime) SC ×4 (07:30→21:00)
[2018-11-13] MEDS: LOPERAMIDE 2 MG CAP PO ×2 (09:00→21:27)
[2018-11-13] MEDS: METOPROLOL (XL) 25 MG TAB PO (09:00)
[2018-11-13] MEDS: CLOPIDOGREL 75 MG TAB PO (09:00)
[2018-11-13] MEDS: APIXABAN 5 MG TABLET PO (09:00)
[2018-11-13] MEDS: CHOLESTYRAMINE 4 GM PACKET PO ×3 (09:02→21:00)
[2018-11-13] MEDS: CREON (24K-76K-120K) 1 CAP PO ×4 (09:02→17:11)
[2018-11-13] MEDS: MULTIVIT/CA CARB/B CMPLX/FA TAB PO (09:02)
[2018-11-13] MEDS: CALCIUM ACETATE 667 MG CAP PO ×3 (09:03→17:14)
[2018-11-13] MEDS: DIPHENOXYLATE/ATROPINE TAB PO ×4 (09:03→21:24)
[2018-11-13] MEDS: DAKINS 0.0125%(1/40) 473 ML SOLUTION TP (09:10)
[2018-11-13] MEDS: BALSAM PERU/CASTOR OIL 60 GM TUBE TOP ×2 (09:10→21:00)
[2018-11-13] MEDS: NYSTATIN 30 GM POWDER BTL TOP ×2 (09:11→21:00)
[2018-11-13] MEDS: LIDOCAINE 1% (MDV) 20 ML INJ INJ (09:21)
[2018-11-13] MEDS: HYDROCODONE/APAP (10/325) TAB PO (11:37)
[2018-11-13] MEDS: INSULIN GLARGINE [LANTus] (100 UNITS/ML) SYG SC (21:26)
[2018-11-14] MEDS: HYDROCODONE/APAP (10/325) TAB PO ×5 (02:09→23:53)
[2018-11-14] MEDS: LEVOTHYROXINE 100 MCG TAB PO (06:18)
[2018-11-14] MEDS: Insulin NOVOLOG SS MILD Algorithm (SS with meals and bedtime) SC ×4 (07:30→20:00)
[2018-11-14] MEDS: CREON (24K-76K-120K) 1 CAP PO ×3 (08:23→17:22)
[2018-11-14] MEDS: MULTIVIT/CA CARB/B CMPLX/FA TAB PO (08:23)
[2018-11-14] MEDS: CALCIUM ACETATE 667 MG CAP PO ×3 (08:23→17:21)
[2018-11-14] MEDS: PANTOPRAZOLE (EC) 40 MG TAB PO (08:23)
[2018-11-14] MEDS: LOPERAMIDE 2 MG CAP PO ×2 (08:24→19:58)
[2018-11-14] MEDS: CHOLESTYRAMINE 4 GM PACKET PO ×3 (08:24→20:00)
[2018-11-14] MEDS: DIPHENOXYLATE/ATROPINE TAB PO ×4 (08:24→19:58)
[2018-11-14] MEDS: CLOPIDOGREL 75 MG TAB PO (08:24)
[2018-11-14] MEDS: METOPROLOL (XL) 25 MG TAB PO (08:30)
[2018-11-14] MEDS: NYSTATIN 30 GM POWDER BTL TOP ×2 (08:32→20:00)
[2018-11-14] MEDS: DAKINS 0.0125%(1/40) 473 ML SOLUTION TP (08:32)
[2018-11-14] MEDS: BALSAM PERU/CASTOR OIL 60 GM TUBE TOP ×2 (08:32→20:01)
[2018-11-14] MEDS: ZOLPIDEM 5 MG TAB PO ×2 (19:58→23:34)
[2018-11-14] MEDS: INSULIN GLARGINE [LANTus] (100 UNITS/ML) SYG SC (19:59)
[2018-11-15] MEDS: PANTOPRAZOLE (EC) 40 MG TAB PO (05:44)
[2018-11-15] MEDS: LEVOTHYROXINE 100 MCG TAB PO (05:44)
[2018-11-15] MEDS: Insulin NOVOLOG SS MILD Algorithm (SS with meals and bedtime) SC ×4 (07:30→21:45)
[2018-11-15] MEDS: DEXTROSE 50% 50 ML SYRINGE IV (08:41)
[2018-11-15] MEDS: GLUCOSE GEL 15 GRAM TUBE BUCCAL (08:41)
[2018-11-15] MEDS: MULTIVIT/CA CARB/B CMPLX/FA TAB PO (08:42)
[2018-11-15] MEDS: CLOPIDOGREL 75 MG TAB PO (08:42)
[2018-11-15] MEDS: CREON (24K-76K-120K) 1 CAP PO ×3 (08:42→16:57)
[2018-11-15] MEDS: CALCIUM ACETATE 667 MG CAP PO ×3 (08:43→16:57)
[2018-11-15] MEDS: DIPHENOXYLATE/ATROPINE TAB PO ×4 (08:43→21:48)
[2018-11-15] MEDS: METOPROLOL (XL) 25 MG TAB PO (08:44)
[2018-11-15] MEDS: DAKINS 0.0125%(1/40) 473 ML SOLUTION TP (08:46)
[2018-11-15] MEDS: CHOLESTYRAMINE 4 GM PACKET PO ×3 (08:46→21:00)
[2018-11-15] MEDS: NYSTATIN 30 GM POWDER BTL TOP ×2 (08:46→21:00)
[2018-11-15] MEDS: BALSAM PERU/CASTOR OIL 60 GM TUBE TOP ×2 (08:46→21:00)
[2018-11-15] MEDS: LOPERAMIDE 2 MG CAP PO ×2 (08:49→21:48)
[2018-11-15 09:06] LABS: GLUCOSE 220 mg/dl (70-220)
[2018-11-15] MEDS: GLUCAGON 1 MG INJ IM (09:15)
[2018-11-15] MEDS: LIDOCAINE 1% (MDV) 20 ML INJ INJ (15:11)
[2018-11-15] MEDS: ALBUMIN HUMAN 25% 100 ML IV ×2 (15:30→16:26)
[2018-11-15] MEDS: HYDROCODONE/APAP (10/325) TAB PO (21:43)
[2018-11-15] MEDS: INSULIN GLARGINE [LANTus] (100 UNITS/ML) SYG SC (21:45)
[2018-11-16] MEDS: HYDROCODONE/APAP (10/325) TAB PO ×2 (02:32→07:55)
[2018-11-16] MEDS: LEVOTHYROXINE 100 MCG TAB PO (06:01)
[2018-11-16] MEDS: PANTOPRAZOLE (EC) 40 MG TAB PO (06:03)
[2018-11-16] MEDS: Insulin NOVOLOG SS MILD Algorithm (SS with meals and bedtime) SC ×2 (07:30→11:30)
[2018-11-16] MEDS: CREON (24K-76K-120K) 1 CAP PO ×2 (07:55→11:30)
[2018-11-16] MEDS: NYSTATIN 30 GM POWDER BTL TOP (07:55)
[2018-11-16] MEDS: MULTIVIT/CA CARB/B CMPLX/FA TAB PO (07:55)
[2018-11-16] MEDS: LOPERAMIDE 2 MG CAP PO (07:55)
[2018-11-16] MEDS: DIPHENOXYLATE/ATROPINE TAB PO (07:55)
[2018-11-16] MEDS: CLOPIDOGREL 75 MG TAB PO (07:56)
[2018-11-16] MEDS: CALCIUM ACETATE 667 MG CAP PO ×2 (07:57→11:30)
[2018-11-16] MEDS: CHOLESTYRAMINE 4 GM PACKET PO (07:57)
[2018-11-16] MEDS: BALSAM PERU/CASTOR OIL 60 GM TUBE TOP (07:58)
[2018-11-16] MEDS: DAKINS 0.0125%(1/40) 473 ML SOLUTION TP (07:58)
[2018-11-16] MEDS: METOPROLOL (XL) 25 MG TAB PO (08:02)
== END 2018-11-16 12:32 | DRG 871 ==
LOC: PP2 11-10 13:34 → E/R 07:02 → 6WM 14:10
PROVIDERS: Internal Medicine
PROC: 5A1D70Z Performance of Urinary Filtration, Intermittent, Less than 6 Hours Per Day (ICD-10-PCS; principal; 2018-11-02)
DX: A41.9 Sepsis, unspecified organism (principal); N18.6 End stage renal disease; G92 Toxic encephalopathy; J69.0 Pneumonitis due to inhalation of food and vomit; E87.2 Acidosis; Z94.0 Kidney transplant status; I42.9 Cardiomyopathy, unspecified; E11.52 Type 2 diabetes mellitus with diabetic peripheral angiopathy with gangrene; Z94.83 Pancreas transplant status; I13.2 Hypertensive heart and chronic kidney disease with heart failure and with stage 5 chronic kidney disease, or end stage renal disease; I95.9 Hypotension, unspecified; E10.22 Type 1 diabetes mellitus with diabetic chronic kidney disease; I48.2 Chronic atrial fibrillation; R54 Age-related physical debility; Z99.2 Dependence on renal dialysis; I25.10 Atherosclerotic heart disease of native coronary artery without angina pectoris; K21.9 Gastro-esophageal reflux disease without esophagitis; E78.5 Hyperlipidemia, unspecified; E03.9 Hypothyroidism, unspecified; Z95.5 Presence of coronary angioplasty implant and graft; D63.1 Anemia in chronic kidney disease; Z86.73 Personal history of transient ischemic attack (TIA), and cerebral infarction without residual deficits; I25.2 Old myocardial infarction; Z87.891 Personal history of nicotine dependence; L97.529 Non-pressure chronic ulcer of other part of left foot with unspecified severity; Z98.890 Other specified postprocedural states; Z96.21 Cochlear implant status; H91.90 Unspecified hearing loss, unspecified ear; E10.42 Type 1 diabetes mellitus with diabetic polyneuropathy; I48.0 Paroxysmal atrial fibrillation; R79.9 Abnormal finding of blood chemistry, unspecified; L89.152 Pressure ulcer of sacral region, stage 2; I50.9 Heart failure, unspecified
CPT/HCPCS: 36415; 36600; 70450; 71045; 73630-LT; 80048; 80053; 82550; 82553; 82803; 82947; 82962; 83605; 84145; 84443; 84484; 85025; 85610; 85651; 85730; 87040-91; 87081; 87340; 90935; 92526; 92610; 93005; 93306; 94640; 94664; 96361; 96365; 97110; 97116; 97162; 97530; 99285-25

== ENCOUNTER → 2019-01-15 | Outpatient (CLI) | payer MEDICARE, OTHER | END | disposition home or self-care (01) | LOC: C/S 09:22 | DX: S32.592D Other specified fracture of left pubis, subsequent encounter for fracture with routine healing (principal); X58.XXXD Exposure to other specified factors, subsequent encounter; M79.605 Pain in left leg; M79.89 Other specified soft tissue disorders; N26.1 Atrophy of kidney (terminal) | CPT/HCPCS: 73700 ==